=== PATIENT | female | born 1940 | race Caucasian/White ===

== ENCOUNTER 2016-05-12 09:23 | Inpatient (IN) | payer MEDICARE, OTHER ==
--- NOTE | 2016-05-12 09:31 | ED Physician Documentation ---
General Adult - HISTORIAN Historian: patient - HPI Chief Complaint: Nausea,Vomiting,Diarrhea Onset: days ago (3) Timing: still present Further Comments: yes (Patient states that she has not felt well over the last several days. Has been having some nausea with some slight vomiting of small amount of green material. No blood noted. Patient is reparted by shelter to be having some diarrhea, having several stools a day. Patient has been running a low grade fever.) - ROS CONST: fever, sweating, chills CVS/RESP: cough (productive of brown phlegm) GI/: abdominal pain MS/SKIN/LYMPH: none NEURO/PSYCH: headache - PAST HX Past History: asthma (bipolar, DJD, ), hypertension, other (GERDs, Bipolar disease, CKD, s/p CVA, ) Other History: other (Hypothyroidism, migraine headaches) Surgeries/Procedures: hysterectomy (vaginal) Immunizations: UTD Allergies/Adverse Reactions: Allergies Allergy/AdvReac Type Severity Reaction Status Date / Time hydrocortisone Allergy Verified 05/12/16 10:11 [From Cortizone-10] prochlorperazine edisylate Allergy Verified 05/12/16 10:11 [From Compazine] prochlorperazine maleate Allergy Verified 05/12/16 10:11 [From Compazine] sulfamethoxazole Allergy Verified 05/12/16 10:11 [From Bactrim] trimethoprim [From Bactrim] Allergy Verified 05/12/16 10:11 ciprofloxacin [From Cipro] AdvReac Localized Verified 05/12/16 10:11 Redness ciprofloxacin HCl AdvReac Localized Verified 05/12/16 10:11 [From Cipro] Redness Home Medications: Ambulatory Orders Medication Instructions Recorded DULoxetine HCL [Cymbalta] 30 mg PO BID 02/23/15 Fluticasone Propionate 1 spray DESTINY 1T 02/23/15 Lamotrigine [Lamictal] 200 mg PO HS 02/23/15 Lisinopril [Prinivil] 10 mg PO D 02/23/15 Loratadine [Claritin] 10 mg PO D 02/23/15 Omeprazole [Prilosec] 10 mg PO AC60 02/23/15 Sumatriptan Succinate [Imitrex] 50 mg PO PRN PRN 02/23/15 - SOCIAL HX Smoking History: non-smoker Alcohol Use: none Drug Use: none - FAMILY HX Family History: No - VITAL SIGNS Vital Signs: Vital Signs Temp Pulse Resp BP Pulse Ox 142/55 02/23/15 14:45 - REVIEWED ASSESSMENTS Nursing Assessment Reviewed: Yes Vitals Reviewed: Yes General Adult Physical Exam - PHYSICAL EXAM GENERAL APPEARANCE: mild distress NECK: normal inspection, thyroid normal, supple. No: stiff neck RESPIRATORY: no resp distress, chest non-tender, breath sounds normal. No: wheezes, rales, rhonchi CVS: reg rate & rhythm, heart sounds normal, equal pulses, no murmur, no gallop ABDOMEN: soft, decreased BS, distended (mild). No: rebound BACK: normal inspection SKIN: warm/dry, normal color NEURO: CN's nml as tested, motor nml, sensation nml, mood/affect nml. No: oriented X3 (orinetated time 2, person and place) Discharge Clincal Impression: Partial small bowel obstruction Home Medications: Ambulatory Orders DULoxetine HCL [Cymbalta] 30 mg PO BID 02/23/15 Fluticasone Propionate 1 spray DESTINY 1T 02/23/15 Lamotrigine [Lamictal] 200 mg PO HS 02/23/15 Lisinopril [Prinivil] 10 mg PO D 02/23/15 Loratadine [Claritin] 10 mg PO D 02/23/15 Omeprazole [Prilosec] 10 mg PO AC60 02/23/15 Sumatriptan Succinate [Imitrex] 50 mg PO PRN PRN 02/23/15 Condition: Stable Disposition: ADMITTED INPATIENT Decision to Admit: [id number] Date of Decison to Admit: 05/12/16 Decision Time: 16:00
[2016-05-12] MEDS ORDERED: ONDANSETRON HCL/PF 4 MG/ 2ML VIAL IVP ONE ×2 (09:35→12:39)
[2016-05-12] MEDS ORDERED: 0.9 % SODIUM CHLORIDE 1,000 ML IV ONE (09:48)
[2016-05-12 09:54] LABS: EOSINOPHILS % 1.1 % (0.0-6.8); MEAN CORPUSCULAR HEMOGLOBIN 30.4 pg (28.0-34.0); MEAN CORPUSCULAR VOLUME 96.6 fl (80.0-100.0); MONOCYTES % 3.4 % (0.0-11.0); NEUTROPHILS # 14.5 # k/uL (1.4-7.7)
[2016-05-12] MEDS ORDERED: 0.9 % SODIUM CHLORIDE 1,000 ML IV SCH (10:00)
[2016-05-12 10:07] LABS: eGFR (African) 43; eGFR (Non-African) 36
[2016-05-12] MEDS: DEXTROSE 5 %-0.45 % NACL 1,000 ML IV SCH ×2 (10:40→19:48)
--- NOTE | 2016-05-12 14:59 | Diagnostic Imaging Report ---
[facility] [address] [facility] [place], [place]. [address] Report Submission Date: May 12, 2016 1:18:52 PM CDT Patient Study Name: JOSE BECKMAN Date: May 12, 2016 12:10:58 PM CDT Modality Type: CT\SR Gender: F Description: CT ABD & PELVIS W/ CON : 38 Institution: [facility] Physician SERGEI BACA - ER CT abdomen and pelvis without contrast CLINICAL HISTORY: POSSIBLE BOWEL OBSTRUCTION. PT UNABLE TO BRING ARMS ABOVE HEAD. EXAM PERFORMED WITHOUT CONTRAST DUE TO PT CREATININE TOO HIGH (Hx) / POSSIBLE SMALL BOWEL OBSTRUCTION (DICOM Hx) TECHNIQUE: 5 mm contiguous axial images of the abdomen and pelvis non contrast. FINDINGS: Evaluation is limited without IV contrast. The patient's arms also significant limits evaluation. The lung bases are clear. The noncontrast liver is grossly unremarkable. There is cholelithiasis. The noncontrast spleen, adrenal glands pancreas and kidneys are grossly unremarkable. There is a proximal small bowel obstruction measuring 3.6 cm. The distal small bowel loops are decompressed. The transition point is difficult to ascertain but appears to be in the right midabdomen. There is mild perihepatic ascites. There mild pelvic ascites.. There is no pneumoperitoneum or pneumatosis intestinalis. Nonobstructive osseous lesions. IMPRESSION: 1. Proximal small bowel obstruction without pneumoperitoneum or pneumatosis intestinalis. Evaluation for bowel ischemia is limited without IV contrast. T no elbow S1 here is mild pelvic and perihepatic ascites. 2. Cholelithiasis d/w ER at 1315 hrs Electronically signed on May 12, 2016 1:18:52 PM CDT by: Joey NASSAR
--- NOTE | 2016-05-12 15:00 | Diagnostic Imaging Report ---
SERGEI BACA [facility] [address] [facility].[address] [address] Report Submission Date: May 12, 2016 11:28:26 AM CDT Patient Study Name: JOSE BECKMAN Date: May 12, 2016 10:08:15 AM CDT Modality Type: CR Gender: F Description: CHEST,ABDOMEN : 39 Institution: [facility] Physician: SERGEI BACA Abdominal series with chest History: Nausea, vomiting, abdominal pain Findings: A single view the chest reveals clear lungs and normal heart size. Upright and supine abdominal radiographs reveal moderate to marked distention of multiple small bowel loops. Gas is present in the right colon. There is no free air. Lumbar spondylosis is noted. Atherosclerotic calcifications are present. Impression: Small bowel or possibly right colonic obstruction. Recommend computed tomography of the abdomen and pelvis with intravenous contrast. Electronically signed on May 12, 2016 11:28:26 AM CDT by: Ke NASSAR
--- NOTE | 2016-05-12 17:05 | History and Physical Report ---
History of Present Illnes - History of Present Illness Reason for Visit: Nausea and vomitng History of Present Illness: 76yo white female with 3 day history of nausea vomiting or diarrhea. Patient states she has been running a low-grade fever. Patient has had some mild chills. Patient states her emisis is green in nature. Patient denies any hematemesis melena or hematochezia. Patient has had some mild abdominal cramping. Patient states his last bowel movement was yesterday. Nursing staff at the detention states that she's been having formed bowel movements a day. Bowel movements have been loose and diarrhea in nature. Patient subsequently came to the ED for evaluation. In the ED patient was found to have a partial small bowel obstruction in the proximal small bowel. Dr. Brantley was consulted. It was felt it would be rosenthal to give the patient a trial of bowel rest to see if her partial small bowel obstruction which resolved. Patient states the only previous abdominal surgery. She has had a vaginal hysterectomy. Patient was subsequently admitted to the hospital for further care and treatment. We'll put the patient nothing by mouth. NG tube has been placed to low intermittent suction. - Past Medical History Cardiac: HTN Pulmonary: Asthma CAN CLEANER: CVA Gastrointestinal: GERD Heme/Onc: Anemia NOS Psych: Bipolar, Depression Musculoskeletal: Osteoarthritis Renal/: Chronic renal insuff Endocrine: Hypothyroidism - Past Surgical History Past Surgical History: Hysterectomy (vaginal hysterrectomy) - Past Family History Mother Family History: (70s unknown cause) Father Family History: (60s from [place] cause) - Past Social History Smoke: No Occupation: retired, Alcohol: None Drugs: None Lives: Long Term Domestic Violence: Negative - Health Maintenance Health Maintenance: Influenza Vaccine, Pneumococcal Vaccine. denies: Cholesterol, Mammogram, Colonoscopy, DEXA Pneumonia Vaccine: Yes Resuscitation Status: Resusciation Status Resuscitation Status Do Not Resuscitate - Unable to Obtain History Unable to Obtain: No Review of Systems - Review of Systems Constitutional: Fever, Chills. negative: Sweats, Weakness Eyes: negative: vision change ENT: Nose Congestion. negative: Ear Discharge, Nose Discharge, Mouth Pain Respiratory: Cough, Dry, Shortness of Breath (mild). negative: Sputum, Wheezing Cardiovascular: negative: Chest Pain, Palpitations Gastrointestinal: Nausea, Vomiting, Diarrhea. negative: Abdominal Pain, Constipation, Melena, Hematochezia Genitourinary: negative: Dysuria, Frequency, Incontinence Musculoskeletal: negative: Neck Pain, Shoulder Pain Skin: negative: Rash, Lesions Neurological: Weakness, Confusion (at baseline). negative: Change in Speech - Medications/Allergies Allergies/Adverse Reactions: Allergies Allergy/AdvReac Type Severity Reaction Status Date / Time hydrocortisone Allergy Verified 05/12/16 10:11 [From Cortizone-10] prochlorperazine edisylate Allergy Verified 05/12/16 10:11 [From Compazine] prochlorperazine maleate Allergy Verified 05/12/16 10:11 [From Compazine] sulfamethoxazole Allergy Verified 05/12/16 10:11 [From Bactrim] trimethoprim [From Bactrim] Allergy Verified 05/12/16 10:11 ciprofloxacin [From Cipro] AdvReac Localized Verified 05/12/16 10:11 Redness ciprofloxacin HCl AdvReac Localized Verified 05/12/16 10:11 [From Cipro] Redness Current Inpatient Medications: Current Inpatient Medications Donepezil HCl (Aricept) 10 mg PO HS KATHY Duloxetine HCl (Cymbalta) 30 mg PO BID KATHY Enoxaparin Sodium (Lovenox) 30 mg SQ QD KATHY Stop: 05/25/16 17:01 Dextrose/Sodium Chloride (D51/2ns) 1,000 mls @ 125 mls/hr IV Q8H [facility] Last Admin: 05/12/16 10:40 Dose: 125 mls/hr Pantoprazole Sodium 40 mg/ (Sodium Chloride) 50 mls @ 100 mls/hr IV DAILY [facility] Insulin Human Regular (Humulin R) 0 - 6 unit SQ CHEMX3 [facility] PRN Reason: Protocol Lamotrigine (Lamictal) 200 mg PO DAILY [facility] Lisinopril (Prinivil) 10 mg PO DAILY [facility] Memantine (Namenda) 10 mg PO BID [facility] Miscellaneous (Chem Sticks) 1 each CHEMQID [facility] Exam - Exam Vital Signs: Vital Signs (72 hours) 05/12/16 16:30 Pulse Rate [ 80 Right Pulse ox] Respiratory 18 Rate Blood Pressure 131/66 [Left Arm] O2 Sat by Pulse 96 Oximetry General: Alert, Oriented to Person, Oriented to Place, Cooperative. No: Oriented to Time HEENT: Atraumatic, PERRLA, Hearing Grossly Normal. No: Mouth Mucous membr. moist/[place] (dry) Neck: Normal Range of Motion. No: Stridor, Rigidity, Lymphadenopathy Lungs: Clear to auscultation, Normal air movement, Speaks full Sentences. No: Wheezes, Rales, Rhonchi Cardiovascular: Regular rate, Normal S1, Normal S2, No murmurs. No: Gallops, Rubs, Murmur Abdomen: Soft, No hepatospenomegaly, Other (very mild tenderness to all four quadrants), Distended (mild), Decreased Bowel Sounds. No: Rigid, Hepatomegaly, Splenomegaly Integumentary: Normal, [place], Warm, Dry Extremities: No clubbing, No cyanosis, No edema Neurological: Normal speech, Strength Equal Bilat, Normal tone Psych/Mental Status: No: Mental status NL (at baseline), Mood NL, Appropriate Affect, Intact Judgment Assessment/Plan - Assessment/Plan (1) Partial small bowel obstruction Status: Acute Current Visit: Yes Assessment: Will palce NPO, support with IV fluids, will recheck KUB and blood work in the AM (2) Hypernatremia Status: Acute Current Visit: No Assessment: started D51/2NS, will recheck in AM. Patient is NPO (3) Bipolar 2 disorder Status: Chronic Current Visit: Yes Assessment: stable, will continue with home meds (4) Chronic kidney disease stage 3 Status: Chronic Current Visit: No Assessment: Stable, sill monitor (5) Hypothyroidism Status: Acute Current Visit: No Assessment: stable continue on home medications VTE Assessment - RISK FACTOR SCORE VTE RISK FACTOR SCORES: AGE OVER 60 YEARS, ANTICIPATED BED CONFINEMENT OR IMMOBILIZATION > 24 HOURS - RISK VTE MODERATE RISK: SCORE OF 2 (RISK PROXIMAL DVT 2-4%) PROPHYAXIS NEEDED (VTE ordered)
[2016-05-12] MEDS ORDERED: SALINE FLUSH 10 ML DISP.SYRIN IVF ONE ×3 (18:23→20:09)
[2016-05-12] MEDS ORDERED: PANTOPRAZOLE SODIUM INJ. 40 MG VIAL ONE (18:24)
[2016-05-12] MEDS ORDERED: 0.9 % SODIUM CHLORIDE 50 ML IV ONE (18:24)
[2016-05-12] MEDS: INSULIN REGULAR, HUMAN 100 UNIT/ML 3ML VIAL SQ SCH (18:39)
[2016-05-12] MEDS: LAMOTRIGINE 100 MG TABLET PO SCH (18:40)
[2016-05-12] MEDS: ENOXAPARIN SODIUM 30 MG/0.3 ML DISP.SYRIN SQ SCH (18:40)
[2016-05-12] MEDS: PANTOPRAZOLE SODIUM 40 MG in 0.9 % SODIUM CHLORIDE 50 ML IV SCH (18:40)
[2016-05-12] MEDS: DONEPEZIL HCL 5 MG TABLET PO SCH (19:50)
[2016-05-12] MEDS: DULoxetine HCL 30 MG CAPSULE.DR PO SCH (19:51)
[2016-05-12] MEDS: MEMANTINE HCL 10 MG TABLET PO SCH (19:51)
[2016-05-12 20:01] VITALS: BMI 32.4
[2016-05-13] MEDS: DEXTROSE 5 %-0.45 % NACL 1,000 ML IV SCH (04:15)
[2016-05-13] MEDS ORDERED: 0.9 % SODIUM CHLORIDE 50 ML IV ONE (05:23)
[2016-05-13] MEDS ORDERED: PANTOPRAZOLE SODIUM INJ. 40 MG VIAL ONE (05:23)
[2016-05-13 06:38] LABS: BASOPHILS % 0.1 (0.0-1.5); MEAN CORPUSCULAR HEMOGLOBIN 29.6 pg (28.0-34.0); MEAN CORPUSCULAR VOLUME 99.9 fl (80.0-100.0)
[2016-05-13 06:41] LABS: EOSINOPHILS % 1.4 % (0.0-6.8); MONOCYTES % 4.7 % (0.0-11.0); NEUTROPHILS # 8.4 # k/uL (1.4-7.7)
[2016-05-13] MEDS: INSULIN REGULAR, HUMAN 100 UNIT/ML 3ML VIAL SQ SCH ×3 (07:10→17:02)
--- NOTE | 2016-05-13 08:08 | Inpatient Progress Note ---
Subjective - Required Recertification Statement I anticipate X number of days because-include discharge plan: 4 - Review of Systems General: Denies: Chills Pulmonary: Denies: Dyspnea, Cough Cardiovascular: Denies: Chest Pain, Palpitations Gastrointestinal: Abdominal Pain (mild cramping). Denies: Nausea, Vomiting Genitourinary: Denies: Dysuria, Frequency Neurological: Denies: Weakness Objective - Exam Vitals and I&O: Vital Signs Temp 97.8 F 05/13/16 06:00 Pulse 77 05/13/16 06:00 Resp 20 05/13/16 06:00 BP 126/71 05/13/16 06:00 Pulse Ox 98 05/13/16 06:00 Intake & Output 05/12/16 05/12/16 05/13/16 11:59 23:59 11:59 Intake Total 0 Balance 0 Weight 88.451 kg Intake: Oral 0 Other: Voiding Method Bedpan # Voids 1 - Results Results: Laboratory Results WBC 10.10 K/ul (4.00-12.00) 05/13/16 06:25 RBC 4.11 M/ul (3.90-5.20) 05/13/16 06:25 Hgb 12.2 g/dL (12.0-16.0) 05/13/16 06:25 Hct 41.1 % (34.5-46.5) 05/13/16 06:25 MCV 99.9 fl (80.0-100.0) 05/13/16 06:25 MCH 29.6 pg (28.0-34.0) 05/13/16 06:25 MCHC 29.6 g/dL (30.0-36.0) L 05/13/16 06:25 RDW 12.5 % (11.3-14.3) 05/13/16 06:25 Plt Count 219 K/mm3 (130-400) 05/13/16 06:25 Neut % (Auto) 77.3 % (39.0-79.0) 05/13/16 06:25 Lymph % (Auto) 15.3 % (16.0-50.0) L 05/13/16 06:25 [place] % (Auto) 4.7 % (0.0-11.0) 05/13/16 06:25 Eos % (Auto) 1.4 % (0.0-6.8) 05/13/16 06:25 Baso % (Auto) 0.1 (0.0-1.5) 05/13/16 06:25 Neut # 8.4 # k/uL (1.4-7.7) H 05/13/16 06:25 Lymph # 1.7 # k/uL (0.6-4.0) 05/13/16 06:25 [place] # 0.5 # k/uL (0.0-0.9) 05/13/16 06:25 Eos # 0.2 # k/uL (0.0-0.6) 05/13/16 06:25 Baso # 0.0 # k/uL (0.0-0.5) 05/13/16 06:25 Reactive Lymphs % 1.2 % (0.0-5.0) 05/13/16 06:25 Reactive Lymphs # 0.1 # k/uL (0.0-0.8) 05/13/16 06:25 Sodium 147 mmol/L (136-145) H 05/13/16 06:25 Potassium 3.4 mmol/L (3.5-5.0) L 05/13/16 06:25 Chloride 112 mmol/L (98-110) H 05/13/16 06:25 Carbon Dioxide 32 mmol/L (20-32) 05/13/16 06:25 BUN 41 mg/dL (10-26) H 05/13/16 06:25 Creatinine 1.6 mg/dL (0.4-1.5) H 05/13/16 06:25 Estimated Creat Clear 48 05/13/16 06:25 Est GFR ( Amer) 40 (60-) L 05/13/16 06:25 Est GFR (Non-Af Amer) 33 (60-) L 05/13/16 06:25 Glucose 169 mg/dL (70-99) H 05/13/16 06:25 Calcium 8.6 mg/dL (8.5-10.5) 05/13/16 06:25 Total Bilirubin 0.3 mg/dL (0.2-1.2) 05/13/16 06:25 AST 14 U/L (0-41) 05/13/16 06:25 ALT 14 U/L (0-45) 05/13/16 06:25 Alkaline Phosphatase 51 U/L (46-116) 05/13/16 06:25 Total Protein 5.7 g/dL (6.0-8.5) L 05/13/16 06:25 Albumin 3.6 g/dL (3.0-5.5) 05/13/16 06:25 Amylase 82 U/L (20-104) 05/12/16 09:50 Assessment/Plan - Assessment/Plan (1) Partial small bowel obstruction Status: Acute Current Visit: Yes Assessment: WBC count is down to 10,000, no fever or chills noted. (2) Hypernatremia Status: Acute Current Visit: No Assessment: Improved to 147. Will continue with D51/2NS (3) Bipolar 2 disorder Status: Chronic Current Visit: Yes Assessment: stable on home meds (4) Chronic kidney disease stage 3 Status: Chronic Current Visit: No Assessment: BUN improved to 41, creatinine is up slightly to 1.6. Will continue to monitor. (5) Hyperglycemia Status: Acute Current Visit: Yes Assessment: Blood sugar fasting is in the 170's
[2016-05-13] MEDS: DULoxetine HCL 30 MG CAPSULE.DR PO SCH ×2 (09:31→19:45)
[2016-05-13] MEDS: MEMANTINE HCL 10 MG TABLET PO SCH ×2 (09:32→19:47)
[2016-05-13] MEDS: LISINOPRIL 5 MG TABLET PO SCH (09:32)
[2016-05-13] MEDS: LAMOTRIGINE 100 MG TABLET PO SCH (09:32)
[2016-05-13] MEDS: PANTOPRAZOLE SODIUM 40 MG in 0.9 % SODIUM CHLORIDE 50 ML IV SCH (09:56)
[2016-05-13] MEDS ORDERED: POTAS CHLOR 20 IN D5-1/2NS 1,000 ML IV SCH (10:00)
[2016-05-13] MEDS: DEXTROSE IV SCH ×4 (11:51→21:18)
[2016-05-13] MEDS: NACL IV SCH ×4 (11:51→21:18)
[2016-05-13] MEDS: POTASSIUM CHLORIDE IV SCH ×4 (11:51→21:18)
[2016-05-13] MEDS ORDERED: D5 IV SCH (15:00)
[2016-05-13] MEDS ORDERED: [UNRECOGNIZED DRUG - OTHER] IV SCH (15:00)
[2016-05-13] MEDS: ENOXAPARIN SODIUM 30 MG/0.3 ML DISP.SYRIN SQ SCH (17:24)
--- NOTE | 2016-05-13 18:43 | Diagnostic Imaging Report ---
[facility]MED SURG [facility] [address] [facility] [address] [place] [address]. [id number] Report Submission Date: May 13, 2016 5:54:55 PM CDT Patient Study Name: JOSE BECKMAN Date: May 13, 2016 4:36:51 PM CDT Modality Type: CR Gender: F Description: ABDOMEN : 38 Institution: [facility] Physician: [facility] WING/MED SURG KUB upright Clinical history: Abdominal pain obstruction Technique ap supine radiograph of the abdomen Findings: There is air distention of the colon. Small bowel distention is present. There are fluid levels on the upright abdomen no free air is seen. The right hemidiaphragm is elevated. The nasogastric tube is in the stomach Impression: There is tendon large and small bowel. Nasogastric tube in the stomach No evidence of free air Clear lung bases Electronically signed on May 13, 2016 5:54:55 PM CDT by: Freddy NASSAR
[2016-05-13] MEDS: DONEPEZIL HCL 5 MG TABLET PO SCH (19:44)
[2016-05-13] MEDS ORDERED: DEXTROSE 5 %-0.45 % NACL 0 ML IV ONE (19:45)
[2016-05-14] MEDS: POTASSIUM CHLORIDE IV SCH ×6 (05:10→23:32)
[2016-05-14] MEDS: NACL IV SCH ×6 (05:10→23:32)
[2016-05-14] MEDS: DEXTROSE IV SCH ×6 (05:10→23:32)
[2016-05-14] MEDS: INSULIN REGULAR, HUMAN 100 UNIT/ML 3ML VIAL SQ SCH ×3 (07:30→16:31)
[2016-05-14] MEDS: DULoxetine HCL 30 MG CAPSULE.DR PO SCH ×2 (08:15→19:47)
[2016-05-14] MEDS: MEMANTINE HCL 10 MG TABLET PO SCH ×2 (08:16→19:46)
[2016-05-14] MEDS: LAMOTRIGINE 100 MG TABLET PO SCH (08:16)
[2016-05-14] MEDS: LISINOPRIL 5 MG TABLET PO SCH (08:16)
[2016-05-14] MEDS ORDERED: PANTOPRAZOLE SODIUM INJ. 40 MG VIAL ONE (08:46)
[2016-05-14] MEDS ORDERED: 0.9 % SODIUM CHLORIDE 50 ML IV ONE (08:46)
[2016-05-14] MEDS: PANTOPRAZOLE SODIUM 40 MG in 0.9 % SODIUM CHLORIDE 50 ML IV SCH (09:41)
[2016-05-14] MEDS ORDERED: ACETAMINOPHEN 1,000 MG/100 ML INJ IV PRN (09:50)
[2016-05-14 10:17] LABS: BASOPHILS % 0.1 (0.0-1.5); EOSINOPHILS % 3.4 % (0.0-6.8); MEAN CORPUSCULAR HEMOGLOBIN 30.2 pg (28.0-34.0); MEAN CORPUSCULAR VOLUME 100.1 fl (80.0-100.0); MONOCYTES % 3.4 % (0.0-11.0); NEUTROPHILS # 6.8 # k/uL (1.4-7.7)
[2016-05-14 10:29] LABS: eGFR (African) > 60; eGFR (Non-African) > 60
[2016-05-14] MEDS ORDERED: SALINE FLUSH 10 ML DISP.SYRIN IVF ONE ×2 (11:00→16:09)
[2016-05-14] MEDS: ENOXAPARIN SODIUM 30 MG/0.3 ML DISP.SYRIN SQ SCH (16:31)
--- NOTE | 2016-05-14 16:56 | Diagnostic Imaging Report ---
[facility] [address] [facility].[address] [address] Report Submission Date: May 14, 2016 3:25:10 PM CDT Patient Study Name: JOSE BECKMAN Date: May 14, 2016 8:48:58 AM CDT Modality Type: CR Gender: F Description: ABDOMEN : 38 Institution: [facility] Physician: [facility] WING/MED SURG AP view of the abdomen Clinical history: Bowel obstruction NG tube is in the stomach in good position. There is persistent dilatation of the small bowel loops , however significant amount of air is noted in the colon . the findings could be consistent with partial mechanical small bowel obstruction improved since the previous study . Impression: NG tube is in stomach. Persistent dilated small bowel loops , improved since the previous study . Electronically signed on May 14, 2016 3:25:10 PM CDT by: Cecilio NASSAR
[2016-05-14] MEDS: DONEPEZIL HCL 5 MG TABLET PO SCH (19:46)
[2016-05-14] MEDS ORDERED: DEXTROSE 5 %-0.45 % NACL 1,000 ML IV ONE (22:39)
[2016-05-15] MEDS: DEXTROSE IV SCH ×6 (04:28→18:58)
[2016-05-15] MEDS: POTASSIUM CHLORIDE IV SCH ×6 (04:28→18:58)
[2016-05-15] MEDS: NACL IV SCH ×6 (04:28→18:58)
[2016-05-15] MEDS ORDERED: DEXTROSE 5 %-0.45 % NACL 1,000 ML IV ONE (07:21)
[2016-05-15] MEDS: INSULIN REGULAR, HUMAN 100 UNIT/ML 3ML VIAL SQ SCH ×3 (07:28→16:33)
[2016-05-15] MEDS: LAMOTRIGINE 100 MG TABLET PO SCH (08:35)
[2016-05-15] MEDS: LISINOPRIL 5 MG TABLET PO SCH (08:36)
[2016-05-15] MEDS: MEMANTINE HCL 10 MG TABLET PO SCH ×2 (08:36→20:29)
[2016-05-15] MEDS: DULoxetine HCL 30 MG CAPSULE.DR PO SCH ×2 (08:37→20:23)
[2016-05-15 08:52] LABS: BASOPHILS % 0.2 (0.0-1.5); MEAN CORPUSCULAR HEMOGLOBIN 30.5 pg (28.0-34.0); NEUTROPHILS # 5.6 # k/uL (1.4-7.7)
[2016-05-15 09:25] LABS: eGFR (African) > 60; eGFR (Non-African) > 60
[2016-05-15] MEDS: PANTOPRAZOLE SODIUM 40 MG in 0.9 % SODIUM CHLORIDE 50 ML IV SCH (09:33)
--- NOTE | 2016-05-15 14:01 | Inpatient Progress Note ---
Subjective - Required Recertification Statement I anticipate X number of days because-include discharge plan: 3 - Review of Systems Events since last encounter: Patient is comfortable. Denies and abd pain. Has not passed any flatus that she is aware of. No further nausea noted. Other problems remain stable. General: Denies: Chills Pulmonary: Denies: Dyspnea, Cough Cardiovascular: Denies: Chest Pain, Palpitations Gastrointestinal: Denies: Nausea, Vomiting, Abdominal Pain, Diarrhea, Constipation Neurological: Weakness Objective - Exam Vitals and I&O: Vital Signs Temp 98.8 F 05/15/16 10:00 Pulse 69 05/15/16 10:00 Resp 16 05/15/16 10:00 BP 172/73 05/15/16 10:00 Pulse Ox 100 05/15/16 10:00 Intake & Output 05/14/16 05/15/16 05/15/16 23:59 11:59 23:59 Intake Total 0 Balance 0 Weight 79.379 kg Intake: Oral 0 Other: Voiding Method Bedpan Incontinent # Voids 2 2 General: Alert, Oriented to Person, Oriented to Place, Oriented to Time Neck: Supple, No JVD Lungs: Clear to auscultation, Normal air movement, Speaks full Sentences. No: Respiratory Distress, Wheezes, Rales, Rhonchi Cardiovascular: Regular rate, Normal S1, Normal S2, No murmurs Abdomen: Soft, No tenderness, No hepatospenomegaly, No masses, Decreased Bowel Sounds Skin: Normal, [place], Warm, Dry Neurological: Normal speech Psych/Mental Status: Mental status NL (at baseline) - Results Results: Laboratory Results WBC 7.30 K/ul (4.00-12.00) 05/15/16 08:45 RBC 3.80 M/ul (3.90-5.20) L 05/15/16 08:45 Hgb 11.6 g/dL (12.0-16.0) L 05/15/16 08:45 Hct 38.4 % (34.5-46.5) 05/15/16 08:45 MCV 101.0 fl (80.0-100.0) H 05/15/16 08:45 MCH 30.5 pg (28.0-34.0) 05/15/16 08:45 MCHC 30.3 g/dL (30.0-36.0) 05/15/16 08:45 RDW 12.2 % (11.3-14.3) 05/15/16 08:45 Plt Count 173 K/mm3 (130-400) 05/15/16 08:45 Neut % (Auto) 76.2 % (39.0-79.0) 05/15/16 08:45 Lymph % (Auto) 13.5 % (16.0-50.0) L 05/15/16 08:45 [place] % (Auto) 3.0 % (0.0-11.0) 05/15/16 08:45 Eos % (Auto) 6.0 % (0.0-6.8) 05/15/16 08:45 Baso % (Auto) 0.2 (0.0-1.5) 05/15/16 08:45 Neut # 5.6 # k/uL (1.4-7.7) 05/15/16 08:45 Lymph # 1.0 # k/uL (0.6-4.0) 05/15/16 08:45 [place] # 0.2 # k/uL (0.0-0.9) 05/15/16 08:45 Eos # 0.4 # k/uL (0.0-0.6) 05/15/16 08:45 Baso # 0.0 # k/uL (0.0-0.5) 05/15/16 08:45 Reactive Lymphs % 1.0 % (0.0-5.0) 05/15/16 08:45 Reactive Lymphs # 0.1 # k/uL (0.0-0.8) 05/15/16 08:45 Sodium 150 mmol/L (136-145) H 05/15/16 08:45 Potassium 4.0 mmol/L (3.5-5.0) 05/15/16 08:45 Chloride 112 mmol/L (98-110) H 05/15/16 08:45 Carbon Dioxide 31 mmol/L (20-32) 05/15/16 08:45 BUN 10 mg/dL (10-26) 05/15/16 08:45 Creatinine 0.8 mg/dL (0.4-1.5) 05/15/16 08:45 Estimated Creat Clear 86 05/15/16 08:45 Est GFR ( Amer) > 60 (60-) 05/15/16 08:45 Est GFR (Non-Af Amer) > 60 (60-) 05/15/16 08:45 Glucose 138 mg/dL (70-99) H 05/15/16 08:45 Calcium 8.9 mg/dL (8.5-10.5) 05/15/16 08:45 Total Bilirubin 0.3 mg/dL (0.2-1.2) 05/14/16 10:05 AST 44 U/L (0-41) H 05/14/16 10:05 ALT 38 U/L (0-45) 05/14/16 10:05 Alkaline Phosphatase 55 U/L (46-116) 05/14/16 10:05 Total Protein 6.0 g/dL (6.0-8.5) 05/14/16 10:05 Albumin 3.7 g/dL (3.0-5.5) 05/14/16 10:05 Amylase 82 U/L (20-104) 05/12/16 09:50 Assessment/Plan - Assessment/Plan (1) Partial small bowel obstruction Status: Acute Current Visit: Yes (2) Hypernatremia Status: Acute Current Visit: No (3) Bipolar 2 disorder Status: Chronic Current Visit: Yes (4) Chronic kidney disease stage 3 Status: Chronic Current Visit: No (5) Hyperglycemia Status: Acute Current Visit: Yes
--- NOTE | 2016-05-15 14:06 | Inpatient Progress Note ---
Subjective - Required Recertification Statement I anticipate X number of days because-include discharge plan: 3 - Review of Systems Events since last encounter: Patient continues to slowly improve. BS are a little better today. no vomiting. Sodium is slightly improved. Objective - Exam Vitals and I&O: Vital Signs Temp 98.8 F 05/15/16 10:00 Pulse 69 05/15/16 10:00 Resp 16 05/15/16 10:00 BP 172/73 05/15/16 10:00 Pulse Ox 100 05/15/16 10:00 Intake & Output 05/14/16 05/15/16 05/15/16 23:59 11:59 23:59 Intake Total 0 Balance 0 Weight 79.379 kg Intake: Oral 0 Other: Voiding Method Bedpan Incontinent # Voids 2 2 General: Alert, Oriented to Person, Oriented to Place, Cooperative Lungs: Clear to auscultation, Normal air movement, Speaks full Sentences. No: Wheezes, Rales, Rhonchi Cardiovascular: Regular rate, Normal S1, Normal S2, No murmurs, Gallops Abdomen: Soft, No tenderness, Decreased Bowel Sounds Extremities: No clubbing, No cyanosis Skin: Normal, [place], Warm, Dry - Results Results: Laboratory Results WBC 7.30 K/ul (4.00-12.00) 05/15/16 08:45 RBC 3.80 M/ul (3.90-5.20) L 05/15/16 08:45 Hgb 11.6 g/dL (12.0-16.0) L 05/15/16 08:45 Hct 38.4 % (34.5-46.5) 05/15/16 08:45 MCV 101.0 fl (80.0-100.0) H 05/15/16 08:45 MCH 30.5 pg (28.0-34.0) 05/15/16 08:45 MCHC 30.3 g/dL (30.0-36.0) 05/15/16 08:45 RDW 12.2 % (11.3-14.3) 05/15/16 08:45 Plt Count 173 K/mm3 (130-400) 05/15/16 08:45 Neut % (Auto) 76.2 % (39.0-79.0) 05/15/16 08:45 Lymph % (Auto) 13.5 % (16.0-50.0) L 05/15/16 08:45 [place] % (Auto) 3.0 % (0.0-11.0) 05/15/16 08:45 Eos % (Auto) 6.0 % (0.0-6.8) 05/15/16 08:45 Baso % (Auto) 0.2 (0.0-1.5) 05/15/16 08:45 Neut # 5.6 # k/uL (1.4-7.7) 05/15/16 08:45 Lymph # 1.0 # k/uL (0.6-4.0) 05/15/16 08:45 Blanco # 0.2 # k/uL (0.0-0.9) 05/15/16 08:45 Eos # 0.4 # k/uL (0.0-0.6) 05/15/16 08:45 Baso # 0.0 # k/uL (0.0-0.5) 05/15/16 08:45 Reactive Lymphs % 1.0 % (0.0-5.0) 05/15/16 08:45 Reactive Lymphs # 0.1 # k/uL (0.0-0.8) 05/15/16 08:45 Sodium 150 mmol/L (136-145) H 05/15/16 08:45 Potassium 4.0 mmol/L (3.5-5.0) 05/15/16 08:45 Chloride 112 mmol/L (98-110) H 05/15/16 08:45 Carbon Dioxide 31 mmol/L (20-32) 05/15/16 08:45 BUN 10 mg/dL (10-26) 05/15/16 08:45 Creatinine 0.8 mg/dL (0.4-1.5) 05/15/16 08:45 Estimated Creat Clear 86 05/15/16 08:45 Est GFR ( Amer) > 60 (60-) 05/15/16 08:45 Est GFR (Non-Af Amer) > 60 (60-) 05/15/16 08:45 Glucose 138 mg/dL (70-99) H 05/15/16 08:45 Calcium 8.9 mg/dL (8.5-10.5) 05/15/16 08:45 Total Bilirubin 0.3 mg/dL (0.2-1.2) 05/14/16 10:05 AST 44 U/L (0-41) H 05/14/16 10:05 ALT 38 U/L (0-45) 05/14/16 10:05 Alkaline Phosphatase 55 U/L (46-116) 05/14/16 10:05 Total Protein 6.0 g/dL (6.0-8.5) 05/14/16 10:05 Albumin 3.7 g/dL (3.0-5.5) 05/14/16 10:05 Amylase 82 U/L (20-104) 05/12/16 09:50 Assessment/Plan - Assessment/Plan (1) Partial small bowel obstruction Status: Acute Current Visit: Yes Assessment: Gas pattern is slowly improving, seems to be more gas in colon then before. Will continue with present treatment, hopefully will be better tomorrow and can start some oral fluids. (2) Hypernatremia Status: Acute Current Visit: No Assessment: stable (3) Bipolar 2 disorder Status: Chronic Current Visit: Yes Assessment: stable (4) Chronic kidney disease stage 3 Status: Chronic Current Visit: No Assessment: improved, creat 1.0 (5) Hyperglycemia Status: Acute Current Visit: Yes Assessment: has been running in the mid 100 range (6) Positive blood culture Status: Acute Current Visit: Yes Assessment: staph species in one bottle, WBC normal, no fever or chills, suspect contaminate.
[2016-05-15] MEDS: ENOXAPARIN SODIUM 30 MG/0.3 ML DISP.SYRIN SQ SCH ×2 (16:34→16:35)
[2016-05-15] MEDS ORDERED: POTASSIUM CHLORIDE 20 MEQ/10ML VIAL IV SCH (17:00)
[2016-05-15] MEDS ORDERED: ENOXAPARIN SODIUM 30 MG/0.3 ML DISP.SYRIN SQ SCH (18:00)
[2016-05-15] MEDS ORDERED: GLYCERIN 1 EACH SUPP.RECT RC ONE ×2 (19:19→20:21)
--- NOTE | 2016-05-15 20:11 | Diagnostic Imaging Report ---
S[facility]/MED SURG [facility] [address] [facility].[address] [address] Report Submission Date: May 15, 2016 4:27:02 PM CDT Patient Study Name: JOSE BECKMAN Date: May 15, 2016 1:33:13 PM CDT Modality Type: CR Gender: F Description: ABDOMEN : 38 Institution: [facility] Physician: S[facility]/MED SURG Supine abdomen History: Partial small bowel obstruction Findings: Comparison is made to the prior exam obtained yesterday. A nasogastric tube projects over the distal stomach without change. There is moderate to marked distention of multiple small bowel loops, increased since the prior exam. The amount of colonic gas has decreased slightly. Right colonic mural thickening may be present. Impression: 1. Worsening small bowel obstruction. 2. Possible right sided colitis. Electronically signed on May 15, 2016 4:27:02 PM CDT by: Ke NASSAR
[2016-05-15] MEDS: DONEPEZIL HCL 5 MG TABLET PO SCH (20:23)
[2016-05-16] MEDS: POTASSIUM CHLORIDE IV SCH ×6 (02:15→08:22)
[2016-05-16] MEDS: DEXTROSE IV SCH ×6 (02:15→08:22)
[2016-05-16] MEDS: NACL IV SCH ×6 (02:15→08:22)
[2016-05-16 06:31] LABS: BASOPHILS % 0.1 (0.0-1.5); EOSINOPHILS % 6.4 % (0.0-6.8); MEAN CORPUSCULAR HEMOGLOBIN 29.7 pg (28.0-34.0); MEAN CORPUSCULAR VOLUME 98.9 fl (80.0-100.0); MONOCYTES % 3.8 % (0.0-11.0); NEUTROPHILS # 4.9 # k/uL (1.4-7.7)
[2016-05-16 06:50] LABS: eGFR (African) > 60; eGFR (Non-African) > 60
[2016-05-16] MEDS: INSULIN REGULAR, HUMAN 100 UNIT/ML 3ML VIAL SQ SCH ×2 (07:29→11:35)
[2016-05-16] MEDS: LISINOPRIL 5 MG TABLET PO SCH (08:30)
[2016-05-16] MEDS: DULoxetine HCL 30 MG CAPSULE.DR PO SCH (08:30)
[2016-05-16] MEDS: LAMOTRIGINE 100 MG TABLET PO SCH (08:30)
[2016-05-16] MEDS: MEMANTINE HCL 10 MG TABLET PO SCH (08:30)
[2016-05-16] MEDS: PANTOPRAZOLE SODIUM 40 MG in 0.9 % SODIUM CHLORIDE 50 ML IV SCH (08:30)
--- NOTE | 2016-05-16 12:26 | Discharge Summary ---
Discharge Summary - Discharge Sumary History of Present Illness: 76yo white female with 3 day history of nausea vomiting or diarrhea. Patient states she has been running a low-grade fever. Patient has had some mild chills. Patient states her emisis is green in nature. Patient denies any hematemesis melena or hematochezia. Patient has had some mild abdominal cramping. Patient states his last bowel movement was yesterday. Nursing staff at the longterm states that she's been having formed bowel movements a day. Bowel movements have been loose and diarrhea in nature. Patient subsequently came to the ED for evaluation. In the ED patient was found to have a partial small bowel obstruction in the proximal small bowel. Dr. Brantley was consulted. It was felt it would be rosenthal to give the patient a trial of bowel rest to see if her partial small bowel obstruction which resolved. Patient states the only previous abdominal surgery. She has had a vaginal hysterectomy. Patient was subsequently admitted to the hospital for further care and treatment. We'll put the patient nothing by mouth. NG tube has been placed to low intermittent suction. Condition at Discharge: Stable Home Medications: Ambulatory Orders Medication Instructions Recorded DULoxetine HCL [Cymbalta] 30 mg PO BID 02/23/15 Fluticasone Propionate 1 spray DESTINY 1T 02/23/15 Lamotrigine [Lamictal] 200 mg PO HS 02/23/15 Lisinopril [Prinivil] 10 mg PO D 02/23/15 Omeprazole [Prilosec] 10 mg PO AC60 02/23/15 Sumatriptan Succinate [Imitrex] 50 mg PO PRN PRN 02/23/15 Consultations this Visit: None Procedures this Visit: Other (NG tube) Allergies/Adverse Reactions: Allergies Allergy/AdvReac Type Severity Reaction Status Date / Time hydrocortisone Allergy Verified 05/12/16 10:11 [From Cortizone-10] prochlorperazine edisylate Allergy Verified 05/12/16 10:11 [From Compazine] prochlorperazine maleate Allergy Verified 05/12/16 10:11 [From Compazine] sulfamethoxazole Allergy Verified 05/12/16 10:11 [From Bactrim] trimethoprim [From Bactrim] Allergy Verified 05/12/16 10:11 ciprofloxacin [From Cipro] AdvReac Localized Verified 05/12/16 10:11 Redness ciprofloxacin HCl AdvReac Localized Verified 05/12/16 10:11 [From Cipro] Redness Patient Problems: Current Active Problems Problem Status Onset Hyperglycemia Acute Partial small bowel obstruction Acute Positive blood culture Acute Bipolar 2 disorder Chronic Discharge Summary: Patient was admitted from longterm with symptoms of ilues vs partial small bowel obstruction. Patient was placed NPO with a NG tube to low intermittent suction. Patient was followed with serial KUBs. Initially it was felt that there was air moving into the colon. Over the last two days little to no improvement was noted. Patient continued to have hypoactive BS. Was nauseated at times but no vomiting noted. Patient did not have any spontaneous flatus or BM. Patient was given a glycerine suppository with a small BM in results. Gastric tube was draining about 150-200ml per day. Patient has some hypernatremia on admission and was supported with D51/2NS. Hypernatremia has resolved. Patient was also hypokalemic and KCl was added to IV fluids. Patient did have some mild hyperglycemia, blood sugars remained 100- 200 range. Bipolar remained stable. BUN improved from 44 to <5, creatinine from 1.5 to 0.8. Due to the the fact that patients bowel obstruction did not appear to be resolving and need for further nutritional support, it was felt patient would best be transferred to the services of a surgeon. - Final Diagnosis (1) Partial small bowel obstruction Problems: minimal improvement, no BM or flatus (2) Hypernatremia Problems: improved and resolved (3) Bipolar 2 disorder Problems: stabl (4) Chronic kidney disease stage 3 Problems: improved (5) Hyperglycemia Problems: stable
[2016-05-16 12:59] VITALS: BP 110/55
--- NOTE | 2016-05-16 20:02 | Diagnostic Imaging Report ---
S[facility]ING/MED SURG [facility] [address] [facility].[address] [address] Report Submission Date: May 16, 2016 8:16:02 AM CDT Patient Study Name: JOSE BECKMAN Date: May 16, 2016 7:19:15 AM CDT Modality Type: CR Gender: F Description: ABDOMEN : 38 Institution: [facility] Physician: S[facility]ING/MED SURG 2 views of the abdomen History: KUB, FOLLOW UP SMALL BOWEL OBSTRUCTION Findings: Comparison: Prior KUB May [id number] Small bowel loops slightly less distended than the prior study Demineralized bones with extensive lumbar spine degenerative changes Elevated right hemidiaphragm Impression: Slightly decreased small bowel distention when compared to the prior study, persistent partial small bowel obstruction No significant rectal gas. Electronically signed on May 16, 2016 8:16:02 AM CDT by: Betty NASSAR
--- NOTE | 2016-05-16 20:05 | Diagnostic Imaging Report ---
S[facility]TH [facility]ING/MED SURG [facility] [address] [facility].[address] [address] Report Submission Date: May 16, 2016 12:26:30 PM CDT Patient Study Name: JOSE BECKMAN Date: May 16, 2016 11:56:17 AM CDT Modality Type: CR Gender: F Description: ABDOMEN : 38 Institution: [facility] Physician: [facility]/MED SURG HISTORY: 76-year-old female with NG tube placement COMPARISON: Radiographs from earlier same day. TECHNIQUE: AP views of the abdomen were performed. FINDINGS: There has been interval placement of an NG tube, with its tip in the gastric body. Multiple loops of dilated small bowel are re-identified. Gas is present in the colon, including gas distended transverse colon. No abnormal calcifications are identified overlying the urinary tract. IMPRESSION: Interval placement of NG tube in good position. Stable loops of dilated small bowel with gas present in the colon, suggestive of ileus versus partial bowel obstruction. Electronically signed on May 16, 2016 12:26:30 PM CDT by: Joel NASSAR
== END 2016-05-16 12:55 | disposition short-term general hospital (02) | DRG 389 ==
LOC: ED 09:23 → SOUTH 15:51
PROVIDERS: ADMIT Family Medicine; ATTEND Family Medicine
DX: K56.69 Other intestinal obstruction (principal); E87.0 Hyperosmolality and hypernatremia; F31.81 Bipolar II disorder; N18.3 Chronic kidney disease, stage 3 (moderate); R73.9 Hyperglycemia, unspecified
CPT/HCPCS: 36415; 74000; 74022; 74176; 80048; 80053; 82150; 85025; 87040; 87186; J1650; J1815; J2405; J3480; J7030; J7070; 99223; 99232; 99238; 99283; S1016; S5010

== ENCOUNTER 2016-08-29 12:56 | Observation (INO) | payer MEDICARE, OTHER ==
[2016-08-29] MEDS ORDERED: NALOXONE HCL 0.4 MG/ML AMP ONE (13:08)
[2016-08-29] MEDS ORDERED: ATROPINE SULFATE 0.1 MG/ML DISP.SYRIN ONE (13:12)
[2016-08-29] MEDS ORDERED: ATROPINE SULFATE 0.1 MG/ML DISP.SYRIN IVP ONE ×2 (13:42→13:44)
[2016-08-29 13:59] LABS: BASOPHILS % 0.3 (0.0-1.5); EOSINOPHILS % 1.7 % (0.0-6.8); MEAN CORPUSCULAR HEMOGLOBIN 32.2 pg (28.0-34.0); MEAN CORPUSCULAR VOLUME 100.2 fl (80.0-100.0); MONOCYTES % 2.9 % (0.0-11.0); NEUTROPHILS # 10.9 # k/uL (1.4-7.7)
[2016-08-29 17:05] VITALS: BMI 34.9
--- NOTE | 2016-08-29 17:15 | History and Physical Report ---
History of Present Illnes - History of Present Illness Reason for Visit: bradycardia History of Present Illness: 76-year-old white female who was found by the nursing staff at [facility] unresponsive. Patient is a DNR. Patient was subsequently brought to the emergency room. The EMT could not get an IV established therefore an interest this was placed. Patient was noted to be markedly bradycardia with a pulse in the 40s. A blood pressure is not able to be obtained prior to admission to the ED. Perfusion was poor enough that pulse ox could not be obtained. On arrival in the ED patient's pulse was 40 respiratory rate but shallow at eight blood pressure is not obtainable. It appeared that the eroticism the longer foxing. On IV access was established and patient was given after pain 1 mg times two doses. Patient only had transitory improvement or bradycardia opportunities 50. The flat this for less than a minute. It did not seem to help with the blood pressure. Patient was unresponsive it except to the pain. Glascow coma scale was six. Talk to the patient previously about her current status. Patient was to be a DNR. Patient did express to me in the past that she did not want to have any extraordinary means done in order to keep her alive. According to the nursing staff patient appeared to be normal earlier today. EKG was obtained the [employer] sinus bradycardia. [place] withdrawn showed some hyerkalemia, otherwise labs appeared enclosed baseline. I discussed the situation with the patient guardian and son. It was elected to replace the patient on comfort care. - Past Medical History Cardiac: HTN Pulmonary: Asthma MOLD CHANGER: CVA Gastrointestinal: GERD Heme/Onc: Anemia NOS Psych: Bipolar, Depression Musculoskeletal: Osteoarthritis Renal/: Chronic renal insuff Endocrine: Hypothyroidism - Past Surgical History Past Surgical History: Hysterectomy (vaginal hysterrectomy) - Past Social History Smoke: No Occupation: retired, Alcohol: None Drugs: None Lives: [facility] Domestic Violence: Negative - Health Maintenance Health Maintenance: Influenza Vaccine, Pneumococcal Vaccine. denies: Cholesterol, Mammogram, Colonoscopy, DEXA Pneumonia Vaccine: Yes Resuscitation Status: Resusciation Status Resuscitation Status Do Not Resuscitate - Unable to Obtain History Unable to Obtain: Yes Review of Systems - Review of Systems Constitutional: negative: Fever, Chills Eyes: negative: pain, vision change ENT: negative: Ear Pain, Ear Discharge Respiratory: negative: Cough, Dry, Shortness of Breath, SOB with Excertion Cardiovascular: negative: Chest Pain, Palpitations Gastrointestinal: negative: Nausea, Vomiting, Abdominal Pain Genitourinary: negative: Dysuria, Frequency Musculoskeletal: Back Pain Skin: negative: Rash Neurological: Weakness, Numbness, Change in Speech, Confusion - Medications/Allergies Allergies/Adverse Reactions: Allergies Allergy/AdvReac Type Severity Reaction Status Date / Time hydrocortisone Allergy Verified 08/29/16 14:00 [From Cortizone-10] prochlorperazine edisylate Allergy Verified 08/29/16 14:00 [From Compazine] prochlorperazine maleate Allergy Verified 08/29/16 14:00 [From Compazine] sulfamethoxazole Allergy Verified 08/29/16 14:00 [From Bactrim] trimethoprim [From Bactrim] Allergy Verified 08/29/16 14:00 ciprofloxacin [From Cipro] AdvReac Localized Verified 08/29/16 14:00 Redness ciprofloxacin HCl AdvReac Localized Verified 08/29/16 14:00 [From Cipro] Redness Current Inpatient Medications: Current Inpatient Medications Enoxaparin Sodium (Lovenox) 30 mg SQ QD KATHY Stop: 09/11/16 18:01 Exam - Exam Vital Signs: Vital Signs (72 hours) 08/29/16 08/29/16 16:30 16:52 Temperature 97.7 F Pulse Rate [ 37 L 30 L Pulse ox] Respiratory 24 9 L Rate Blood Pressure 29/0 89/33 [Left Arm] O2 Sat by Pulse 100 90 L Oximetry General: No acute distress. No: Alert, Oriented to Person, Oriented to Place, Oriented to Time HEENT: Atraumatic, PERRLA (pupils were small), Nose Mucous membr. moist/[place] Neck: No: Stridor, Lymphadenopathy Carotids: WNL Thyroid: WNL Lungs: Clear to auscultation, Normal air movement. No: Speaks full Sentences, Wheezes, Rales, Rhonchi Cardiovascular: Regular rate, Bradycardia Murmur: Systolic Murmur Abdomen: Normal bowel sounds, Soft, No tenderness, No hepatospenomegaly, No masses Integumentary: Normal, Dry, Cyanotic Extremities: No clubbing. No: No cyanosis (mil cyanosis) Neurological: Reflexes 2+. No: Normal tone Psych/Mental Status: No: Mental status NL, Mood NL, Appropriate Affect, Intact Judgment Assessment/Plan - Assessment/Plan (1) Unresponsive Status: Acute Assessment: unknown etiology, possible CVA. (2) Sinus bradycardia Status: Acute Assessment: etiology unkown, no evidence of NE at this time (3) Bipolar 2 disorder Status: Chronic (4) Chronic kidney disease stage 3 Status: Chronic Assessment: stable VTE Assessment - RISK FACTOR SCORE VTE RISK FACTOR SCORES: AGE OVER 60 YEARS, ANTICIPATED BED CONFINEMENT OR IMMOBILIZATION > 24 HOURS - RISK VTE MODERATE RISK: SCORE OF 2 (RISK PROXIMAL DVT 2-4%) PROPHYAXIS NEEDED
[2016-08-29] MEDS: ENOXAPARIN SODIUM 30 MG/0.3 ML DISP.SYRIN SQ SCH (18:18)
--- NOTE | 2016-08-29 20:40 | ED Physician Documentation ---
Altered Mental Status - HISTORIAN Historian: other (nursing staff) - HPI Stated Complaint: unresponsive Chief Complaint: Altered Mental Status Onset: hours Last known Well Date: 08/29/16 Last Known Well Time: 12:00 Last known Well Code/Unknown Code: Known Character of Altered Mental Status: unresponsive Context: senior living resident Cognition is Usually: alert but confused Gait is Usually: unable to walk (in wheelchair) Associated Symptoms: denies: fever, chills - ROS EYES/ENT: none CVS/RESP: none GI/: none - PAST HX Past History: bipolar Other History: asthma, COPD Allergies/Adverse Reactions: Allergies Allergy/AdvReac Type Severity Reaction Status Date / Time hydrocortisone Allergy Verified 08/29/16 14:00 [From Cortizone-10] prochlorperazine edisylate Allergy Verified 08/29/16 14:00 [From Compazine] prochlorperazine maleate Allergy Verified 08/29/16 14:00 [From Compazine] sulfamethoxazole Allergy Verified 08/29/16 14:00 [From Bactrim] trimethoprim [From Bactrim] Allergy Verified 08/29/16 14:00 ciprofloxacin [From Cipro] AdvReac Localized Verified 08/29/16 14:00 Redness ciprofloxacin HCl AdvReac Localized Verified 08/29/16 14:00 [From Cipro] Redness Home Medications: Ambulatory Orders Medication Instructions Recorded DULoxetine HCL [Cymbalta] 30 mg PO BID 02/23/15 Fluticasone Propionate 1 spray DESTINY 1T 02/23/15 Lamotrigine [Lamictal] 200 mg PO HS 02/23/15 Lisinopril [Prinivil] 10 mg PO D 02/23/15 Omeprazole [Prilosec] 10 mg PO AC60 02/23/15 Sumatriptan Succinate [Imitrex] 50 mg PO PRN PRN 02/23/15 - SOCIAL HX Smoking History: non-smoker Alcohol Use: none Drug Use: none - FAMILY HX Family History: no significant history - VITAL SIGNS Vital Signs: Vital Signs Temp Pulse Resp BP Pulse Ox 97.6 F 61 12 112/37 94 08/29/16 18:00 08/29/16 18:00 08/29/16 18:00 08/29/16 18:00 08/29/16 18:00 - REVIEWED ASSESSMENTS Nursing Assessment Reviewed: Yes Vitals Reviewed: Yes Progress - Progress Progress: Cardiac studies are normal. Sinus dharmesh. Suspect sinus arrhythmia or possible CVA, after talking to son and guardian decided no inverntion per her earlier request ED Results Lab/Radiology - Lab Results Lab Results: Lab Results 08/29/16 08/29/16 08/29/16 13:45 13:45 13:45 WBC 12.50 K/ul H K/ul (4.00-12.00) RBC 3.25 M/ul L M/ul (3.90-5.20) Hgb 10.5 g/dL L g/dL (12.0-16.0) Hct 32.6 % L % (34.5-46.5) MCV 100.2 fl H fl (80.0-100.0) MCH 32.2 pg pg (28.0-34.0) MCHC 32.1 g/dL g/dL (30.0-36.0) RDW 13.5 % % (11.3-14.3) Plt Count 255 K/mm3 K/mm3 (130-400) Neut % (Auto) 87.1 % H % (39.0-79.0) Lymph % (Auto) 7.6 % L % (16.0-50.0) [place] % (Auto) 2.9 % % (0.0-11.0) Eos % (Auto) 1.7 % % (0.0-6.8) Baso % (Auto) 0.3 (0.0-1.5) Neut # (Auto) 10.9 # k/uL H # k/uL (1.4-7.7) Lymph # (Auto) 1.0 # k/uL # k/uL (0.6-4.0) [place] # (Auto) 0.4 # k/uL # k/uL (0.0-0.9) Eos # (Auto) 0.2 # k/uL # k/uL (0.0-0.6) Baso # (Auto) 0.0 # k/uL # k/uL (0.0-0.5) Reactive Lymphs % 0.4 % % (0.0-5.0) Reactive Lymphs # 0.1 # k/uL # k/uL (0.0-0.8) Sodium 137 mmol/L mmol/L (136-145) Potassium 5.6 mmol/L H mmol/L (3.5-5.0) Chloride 111 mmol/L H mmol/L (98-110) Carbon Dioxide 26 mmol/L mmol/L (20-32) BUN 30 mg/dL H mg/dL (10-26) Creatinine 1.7 mg/dL H mg/dL (0.4-1.5) Estimated Creat Clear 45 Est GFR ( Amer) 37 L (60 - ) Est GFR (Non-Af Amer) 31 L (60 - ) Glucose 106 mg/dL H mg/dL (70-99) Calcium 9.3 mg/dL mg/dL (8.5-10.5) Total Bilirubin 0.1 mg/dL L mg/dL (0.2-1.2) AST 16 U/L U/L (0-41) ALT 8 U/L U/L (0-45) Alkaline Phosphatase 68 U/L U/L (46-116) Troponin I < 0.03 ng/mL L ng/mL (0.03-0.06) Total Protein 6.6 g/dL g/dL (6.0-8.5) Albumin 4.0 g/dL g/dL (3.0-5.5) - Orders Orders: ED Orders Category Date Time Status Place IV Lock 1T Care 08/29/16 13:43 Completed CBC/PLATELET/DIFF Routine Lab 08/29/16 13:45 Completed CMP Routine Lab 08/29/16 13:45 Completed TROPONIN I (cTnI) Routine Lab 08/29/16 13:45 Completed Atropine Sulfate [Atropen] Med 08/29/16 13:12 Discontinued 1 mg .ROUTE .STK-MED ONE Atropine Sulfate [Atropen] Med 08/29/16 13:42 Discontinued 1 mg IVP NOW ONE Atropine Sulfate [Atropen] Med 08/29/16 13:44 Discontinued 1 mg IVP NOW ONE Naloxone HCl [Narcan] Med 08/29/16 13:08 Discontinued 0.4 mg .ROUTE .STK-MED ONE Oxygen Daily Oxygen 08/29/16 13:45 Ordered EKG WITH COMPARISON Routine Ther 08/29/16 13:42 Stop Req Altered Mental Status Physical - Physical Exam General Appearance: no acute distress, other (responsive to pain stimuli) Neuro/Psych: none no response, withdraws nml as tested Peripheral Exam: other (not able to determine) HEENT: EOM's intact Neck: normal inspection Respiratory: no resp distress, chest non-tender CVS: heart sounds normal, bradycardia (marked). No: equal pulses (nonpalpable) Abdomen: non-tender Skin: warm/dry, normal color Extremities: non-tender, normal range of motion Discharge Clincal Impression: Altered mental status Home Medications: Ambulatory Orders DULoxetine HCL [Cymbalta] 30 mg PO BID 02/23/15 Fluticasone Propionate 1 spray DESTINY 1T 02/23/15 Lamotrigine [Lamictal] 200 mg PO HS 02/23/15 Lisinopril [Prinivil] 10 mg PO D 02/23/15 Omeprazole [Prilosec] 10 mg PO AC60 02/23/15 Sumatriptan Succinate [Imitrex] 50 mg PO PRN PRN 02/23/15 Condition: Poor Disposition: 09 ADMITTED INPATIENT Decision to Admit: [id number] Date of Decison to Admit: 08/29/16 Decision Time: 16:45
[2016-08-30] MEDS ORDERED: 0.9 % SODIUM CHLORIDE 1,000 ML IV ONE (08:06)
[2016-08-30] MEDS ORDERED: SALINE FLUSH 10 ML DISP.SYRIN IVF ONE (08:11)
[2016-08-30] MEDS: 0.9 % SODIUM CHLORIDE 1,000 ML IV SCH ×2 (08:30→19:33)
[2016-08-30 08:32] LABS: BASOPHILS % 0.4 (0.0-1.5); EOSINOPHILS % 3.2 % (0.0-6.8); MEAN CORPUSCULAR HEMOGLOBIN 30.2 pg (28.0-34.0); MEAN CORPUSCULAR VOLUME 99.9 fl (80.0-100.0); MONOCYTES % 3.6 % (0.0-11.0); NEUTROPHILS # 7.9 # k/uL (1.4-7.7)
[2016-08-30] MEDS: LISINOPRIL 5 MG TABLET PO SCH (14:30)
[2016-08-30] MEDS: ENOXAPARIN SODIUM 30 MG/0.3 ML DISP.SYRIN SQ SCH (18:49)
[2016-08-31] MEDS ORDERED: LISINOPRIL 20 MG TABLET ONE (05:00)
--- NOTE | 2016-08-31 08:33 | Inpatient Progress Note ---
Subjective - Required Recertification Statement I anticipate X number of days because-include discharge plan: 1 - Review of Systems Events since last encounter: Patient has made a remarkable recovery and seems to be back to baseline. Is awake and talking. Orientated time person and place, knows the season. General: Denies: Chills HEENT: Denies: Head Aches, Visual Changes Cardiovascular: Denies: Chest Pain, Palpitations Gastrointestinal: Denies: Nausea, Vomiting, Abdominal Pain, Constipation Genitourinary: Denies: Dysuria, Frequency Objective - Exam Vitals and I&O: Vital Signs Temp 98.0 F 08/31/16 06:00 Pulse 71 08/31/16 06:00 Resp 18 08/31/16 06:00 BP 144/75 08/31/16 06:00 Pulse Ox 99 08/31/16 06:00 Intake & Output 08/30/16 08/30/16 08/31/16 11:59 23:59 11:59 Intake Total 240 3680 Balance 240 3680 Intake: IV 2400 Left Hand 2400 Oral 240 1280 Other: Voiding Method Incontinent Incontinent # Voids 1 2 General: Alert, Oriented to Person, Oriented to Place, Cooperative, No acute distress HEENT: Atraumatic, PERRLA, Mouth Mucous membr. moist/[place] Neck: Supple, No JVD Lungs: Clear to auscultation, Normal air movement, Speaks full Sentences. No: Wheezes, Rales, Rhonchi Cardiovascular: Regular rate, Normal S1, Normal S2, No murmurs. No: Gallops Abdomen: Normal bowel sounds, Soft, No tenderness Skin: Normal, [place], Warm Neurological: Normal speech, Strength Equal Bilat, Normal tone, Sensation intact , Cranial nerves 3-12 NL, Reflexes 2+ Psych/Mental Status: Mental status NL (at baseline), Mood NL - Results Results: Laboratory Results WBC 10.10 K/ul (4.00-12.00) 08/30/16 08:00 RBC 3.42 M/ul (3.90-5.20) L 08/30/16 08:00 Hgb 10.3 g/dL (12.0-16.0) L 08/30/16 08:00 Hct 34.1 % (34.5-46.5) L 08/30/16 08:00 MCV 99.9 fl (80.0-100.0) 08/30/16 08:00 MCH 30.2 pg (28.0-34.0) 08/30/16 08:00 MCHC 30.3 g/dL (30.0-36.0) 08/30/16 08:00 RDW 13.6 % (11.3-14.3) 08/30/16 08:00 Plt Count 228 K/mm3 (130-400) 08/30/16 08:00 Neut % (Auto) 77.7 % (39.0-79.0) 08/30/16 08:00 Lymph % (Auto) 14.2 % (16.0-50.0) L 08/30/16 08:00 [place] % (Auto) 3.6 % (0.0-11.0) 08/30/16 08:00 Eos % (Auto) 3.2 % (0.0-6.8) 08/30/16 08:00 Baso % (Auto) 0.4 (0.0-1.5) 08/30/16 08:00 Neut # (Auto) 7.9 # k/uL (1.4-7.7) H 08/30/16 08:00 Lymph # (Auto) 1.4 # k/uL (0.6-4.0) 08/30/16 08:00 [place] # (Auto) 0.4 # k/uL (0.0-0.9) 08/30/16 08:00 Eos # (Auto) 0.3 # k/uL (0.0-0.6) 08/30/16 08:00 Baso # (Auto) 0.0 # k/uL (0.0-0.5) 08/30/16 08:00 Reactive Lymphs % 0.9 % (0.0-5.0) 08/30/16 08:00 Reactive Lymphs # 0.1 # k/uL (0.0-0.8) 08/30/16 08:00 Sodium 138 mmol/L (136-145) 08/30/16 08:00 Potassium 5.6 mmol/L (3.5-5.0) H 08/30/16 08:00 Chloride 113 mmol/L (98-110) H 08/30/16 08:00 Carbon Dioxide 23 mmol/L (20-32) 08/30/16 08:00 BUN 35 mg/dL (10-26) H 08/30/16 08:00 Creatinine 1.6 mg/dL (0.4-1.5) H 08/30/16 08:00 Estimated Creat Clear 48 08/30/16 08:00 Est GFR ( Amer) 40 (60-) L 08/30/16 08:00 Est GFR (Non-Af Amer) 33 (60-) L 08/30/16 08:00 Glucose 101 mg/dL (70-99) H 08/30/16 08:00 Calcium 9.7 mg/dL (8.5-10.5) 08/30/16 08:00 Total Bilirubin 0.2 mg/dL (0.2-1.2) 08/30/16 08:00 AST 16 U/L (0-41) 08/30/16 08:00 ALT 13 U/L (0-45) 08/30/16 08:00 Alkaline Phosphatase 77 U/L (46-116) 08/30/16 08:00 Troponin I < 0.03 ng/mL (0.03-0.06) L 08/30/16 08:00 Total Protein 7.1 g/dL (6.0-8.5) 08/30/16 08:00 Albumin 4.1 g/dL (3.0-5.5) 08/30/16 08:00 Assessment/Plan - Assessment/Plan (1) Unresponsive Status: Acute Current Visit: Yes Assessment: mentation is back to normal. (2) Sinus bradycardia Status: Acute Current Visit: Yes Assessment: improved, EKG shows NSR (3) Bipolar 2 disorder Status: Chronic Current Visit: No Assessment: stable (4) Chronic kidney disease stage 3 Status: Chronic Current Visit: No Assessment: stable
[2016-08-31] MEDS: LISINOPRIL 5 MG TABLET PO SCH (08:35)
[2016-08-31 08:56] VITALS: BP 159/60
[2016-08-31 10:17] LABS: eGFR (African) > 60; eGFR (Non-African) > 60
--- NOTE | 2016-09-29 17:05 | Discharge Summary ---
Discharge Summary - Discharge Sumary History of Present Illness: 76-year-old white female who was found by the nursing staff at [facility] unresponsive. Patient is a DNR. Patient was subsequently brought to the emergency room. The EMT could not get an IV established therefore an interest this was placed. Patient was noted to be markedly bradycardia with a pulse in the 40s. A blood pressure is not able to be obtained prior to admission to the ED. Perfusion was poor enough that pulse ox could not be obtained. On arrival in the ED patient's pulse was 40 respiratory rate but shallow at eight blood pressure is not obtainable. It appeared that the eroticism the longer foxing. On IV access was established and patient was given after pain 1 mg times two doses. Patient only had transitory improvement or bradycardia opportunities 50. The flat this for less than a minute. It did not seem to help with the blood pressure. Patient was unresponsive it except to the pain. Glascow coma scale was six. Talk to the patient previously about her current status. Patient was to be a DNR. Patient did express to me in the past that she did not want to have any extraordinary means done in order to keep her alive. According to the nursing staff patient appeared to be normal earlier today. EKG was obtained the [facility] sinus bradycardia. [place] withdrawn showed some hyerkalemia, otherwise labs appeared enclosed baseline. I discussed the situation with the patient guardian and son. It was elected to replace the patient on comfort care. Condition at Discharge: Stable Home Medications: Ambulatory Orders Medication Instructions Recorded DULoxetine HCL [Cymbalta] 30 mg PO BID 02/23/15 Fluticasone Propionate 1 spray DESTINY 1T 02/23/15 Lamotrigine [Lamictal] 200 mg PO HS 02/23/15 Sumatriptan Succinate [Imitrex] 50 mg PO PRN PRN 02/23/15 Tramadol HCl [Ultram] 50 mg PO Q6 #60 tablet 08/31/16 Consultations this Visit: None Procedures this Visit: None Allergies/Adverse Reactions: Allergies Allergy/AdvReac Type Severity Reaction Status Date / Time hydrocortisone Allergy Verified 08/29/16 14:00 [From Cortizone-10] prochlorperazine edisylate Allergy Verified 08/29/16 14:00 [From Compazine] prochlorperazine maleate Allergy Verified 08/29/16 14:00 [From Compazine] sulfamethoxazole Allergy Verified 08/29/16 14:00 [From Bactrim] trimethoprim [From Bactrim] Allergy Verified 08/29/16 14:00 ciprofloxacin [From Cipro] AdvReac Localized Verified 08/29/16 14:00 Redness ciprofloxacin HCl AdvReac Localized Verified 08/29/16 14:00 [From Cipro] Redness Discharge Summary: After discussing with the patient guardian her situation was decided to get the patient supportive relative care. However after a period of time patient started to become more aroused and within 24 hours patient appeared to be close to baseline mental status. Specific etiology to her unresponsive is not known. Some question whether the patient may have had some difficulties with medications that she was given. Once patient became more responsive she did not verbalize any complaints. Patient was subsequently discharged back to [facility] and stable condition. - Final Diagnosis (1) Unresponsive Problems: resolved (2) Sinus bradycardia Problems: improved (3) Bipolar 2 disorder Problems: stable (4) Chronic kidney disease stage 3 Problems: stable
== END 2016-08-31 13:50 | disposition home or self-care (01) ==
LOC: ED 12:56 → SOUTH 16:21
PROVIDERS: ADMIT Family Medicine; ATTEND Family Medicine
DX: R40.4 Transient alteration of awareness (principal); R00.1 Bradycardia, unspecified; F31.9 Bipolar disorder, unspecified; N18.3 Chronic kidney disease, stage 3 (moderate)
CPT/HCPCS: 36415; 80048; 80053; 84484; 85025; 93005; G0378; J0461; J1650; J2310; J7030; 96361; 96374; 96375; 96376; 99284; S1016

== ENCOUNTER 2017-04-25 07:33 | Inpatient (IN) | payer MEDICARE, OTHER ==
--- NOTE | 2017-04-25 07:37 | ED Physician Documentation ---
General Adult - HISTORIAN Historian: patient - HPI Stated Complaint: nausea vomiting and diarrhea Chief Complaint: Nausea,Vomiting,Diarrhea Onset: hours (5) Timing: still present Severity: mild Further Comments: yes (alf pt who was transfered to ER via ambulance. Per ambulance she had a fever of 102 in alf with vomiting and diarrhea. she was brought to ER - heavily soiled (dry stool over entire body) . She is non verbal.) Last known Well Code/Unknown Code: Unknown - ROS CONST: fever. denies: recent illness CVS/RESP: cough GI/: vomiting, diarrhea MS/SKIN/LYMPH: denies: rash - PAST HX Past History: hypertension, other (bipolar, asthma, GERD, [place], ) Surgeries/Procedures: other (unknown ) Immunizations: UTD Allergies/Adverse Reactions: Allergies Allergy/AdvReac Type Severity Reaction Status Date / Time hydrocortisone Allergy Verified 04/25/17 08:17 [From Cortizone-10] prochlorperazine edisylate Allergy Verified 04/25/17 08:17 [From Compazine] prochlorperazine maleate Allergy Verified 04/25/17 08:17 [From Compazine] sulfamethoxazole Allergy Verified 04/25/17 08:17 [From Bactrim] trimethoprim [From Bactrim] Allergy Verified 04/25/17 08:17 ciprofloxacin [From Cipro] AdvReac Localized Verified 04/25/17 08:17 Redness ciprofloxacin HCl AdvReac Localized Verified 04/25/17 08:17 [From Cipro] Redness Home Medications: Ambulatory Orders Medication Instructions Recorded DULoxetine HCL [Cymbalta] 30 mg PO BID 02/23/15 Fluticasone Propionate 1 spray DESTINY 1T 02/23/15 Sumatriptan Succinate [Imitrex] 50 mg PO Q2H PRN 02/23/15 Acetaminophen [Tylenol] 650 mg PO Q6 PRN 04/25/17 Haloperidol [Haldol] 1 mg PO HS 04/25/17 Ipratropium/Albuterol Sulfate 3 ml INH Q4H PRN 04/25/17 [Duoneb] [place] Carbonate [Lithobid] 150 mg PO BID 04/25/17 Loratadine [Claritin] 10 mg PO DAILY 04/25/17 Melatonin 10 mg PO HS 04/25/17 Naproxen Sodium [Naproxen Sodium] 220 mg PO BID 04/25/17 Ondansetron HCl Rapdis [Zofran ODT] 4 mg PO Q6 PRN 04/25/17 Oxybutynin Chloride [Ditropan] 5 mg PO DAILY 04/25/17 Ropinirole HCl [Requip] 0.5 mg PO DAILY 04/25/17 Tizanidine HCl [Zanaflex] 4 mg PO BID PRN 04/25/17 - SOCIAL HX Smoking History: non-smoker Alcohol Use: none Drug Use: none - FAMILY HX Family History: No - VITAL SIGNS Vital Signs: Vital Signs Temp Pulse Resp BP Pulse Ox 159/60 08/31/16 12:29 - REVIEWED ASSESSMENTS Nursing Assessment Reviewed: Yes Vitals Reviewed: Yes Progress - Progress Progress: 0830: Pt resting quietly in bed. Dr Jaime notified of labs and urosepsis. Admission will be ordered. DG ED Results Lab/Radiology - Radiology Radiology Impressions: HISTORY: 77-year-old female with cough, vomiting, leukocytosis. COMPARISON: None available TECHNIQUE: Single portable AP view of the chest was performed. FINDINGS: There is mild elevation of the right hemidiaphragm. No pneumothorax, consolidative infiltrates, or pulmonary edema. The heart is not enlarged. IMPRESSION: No acute intrathoracic process identified. Electronically signed on Apr 25, 2017 8:35:51 AM CDT by: Joel Flores General Adult Physical Exam - PHYSICAL EXAM GENERAL APPEARANCE: no distress EENT: eye inspection normal NECK: normal inspection RESPIRATORY: no resp distress, chest non-tender, breath sounds normal CVS: reg rate & rhythm, heart sounds normal, equal pulses, no murmur ABDOMEN: soft, no organomegaly, normal bowel sounds, no distension, non-tender BACK: normal inspection SKIN: warm/dry, normal color EXTREMITIES: non-tender, no evidence of injury, no edema NEURO: other (she is awake, non verbal on commands ) Discharge Clincal Impression: Sepsis due to urinary tract infection Referrals: Cecilio Strauss MD [Primary Care Provider] - 2 Days Condition: Fair Disposition: ADMITTED INPATIENT Decision to Admit: [id number] Date of Decison to Admit: 04/25/17 Decision Time: 08:30
[2017-04-25] MEDS ORDERED: ONDANSETRON HCL/PF 4 MG/ 2ML VIAL ONE (08:01)
[2017-04-25] MEDS ORDERED: 0.9 % SODIUM CHLORIDE 1,000 ML IV ONE ×2 (08:01)
[2017-04-25] MEDS ORDERED: ONDANSETRON HCL/PF 4 MG/ 2ML VIAL IVP ONE (08:02)
[2017-04-25 08:06] LABS: APPEARANCE,URINE Slightly Cloudy (CLEAR); COLOR,URINE Yellow (YELLOW); OCCULT BLOOD,URINE 2+ (NEGATIVE); UROBILINOGEN URINE 0.2 Eu (0.2-1.0)
[2017-04-25 08:09] LABS: MEAN CORPUSCULAR HEMOGLOBIN 31.1 pg (28.0-34.0); MEAN CORPUSCULAR VOLUME 102.3 fl (80.0-100.0)
[2017-04-25 08:21] LABS: SEGMENTED NEUTROPHILS % 95 % (39-79)
[2017-04-25 08:22] LABS: TOXIC GRANULATION PRESENT
[2017-04-25 08:23] LABS: eGFR (African) > 60; eGFR (Non-African) > 60
[2017-04-25] MEDS ORDERED: LEVOFLOXACIN 500MG/D5W 100ML 500 MG in PREMIX BAG 1 BAG IV ONE (08:38)
[2017-04-25] MEDS ORDERED: LEVOFLOXACIN 500MG/D5W 100ML 100 ML IV ONE (08:42)
[2017-04-25 12:48] VITALS: BMI 33.8
--- NOTE | 2017-04-25 13:09 | Diagnostic Imaging Report ---
FARHANA GUTIÉRREZ~ [facility] [id number] [id number] ~ ~ ~ ~ Report Submission Date: Apr 25, 2017 8:35:51 AM CDT Patient ~ Study Name: JOSE BECKMAN ~ Date: Apr 25, 2017 8:20:35 AM CDT ~ Modality Type: DX Gender: F ~ Description: CHEST : 39 ~ Institution: [facility] Physician: FARHANA GUTIÉRREZ ~ ~ ~ HISTORY: ~77-year-old female with cough, vomiting, leukocytosis. COMPARISON: None available TECHNIQUE: Single portable AP view of the chest was performed. FINDINGS: There is mild elevation of the right hemidiaphragm. ~No pneumothorax, consolidative infiltrates, or pulmonary edema. ~The heart is not enlarged. IMPRESSION: No acute intrathoracic process identified. ~ Electronically signed on Apr 25, 2017 8:35:51 AM CDT by: Joel NASSAR
--- NOTE | 2017-04-25 13:36 | History and Physical Report ---
History of Present Illnes - History of Present Illness Reason for Visit: UTI/sepsis History of Present Illness: This is a 77 year old resident of [facility] who presented with decreased LOC and fever today. She also had some diarrhea and decreased LOC. She was noted to have 50-99 WBC/HPF in her urine (culture pending), and her chest XR is clear. Her labs are notable for mild leukocytosis, mactocytosis, mildly elevated lactic acid (2.9) and azotemia. EKG shows PVCs. 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 denies: Cholesterol, Mammogram, Colonoscopy, DEXA Influenza Vaccine: Current for this Influenza Season Pneumonia Vaccine: Yes Resuscitation Status: Resusciation Status Resuscitation Status Do Not Resuscitate - Unable to Obtain History Unable to Obtain: No Review of Systems - Review of Systems Constitutional: Fever, Chills, Weakness. negative: Sweats Eyes: negative: pain ENT: negative: Ear Pain Respiratory: negative: Cough Cardiovascular: negative: Chest Pain Gastrointestinal: Vomiting, Diarrhea. negative: Nausea Genitourinary: Dysuria Musculoskeletal: negative: Neck Pain Skin: negative: Rash, Lesions Neurological: Weakness, Confusion - Medications/Allergies Allergies/Adverse Reactions: Allergies Allergy/AdvReac Type Severity Reaction Status Date / Time hydrocortisone Allergy Verified 04/25/17 08:17 [From Cortizone-10] prochlorperazine edisylate Allergy Verified 04/25/17 08:17 [From Compazine] prochlorperazine maleate Allergy Verified 04/25/17 08:17 [From Compazine] sulfamethoxazole Allergy Verified 04/25/17 08:17 [From Bactrim] trimethoprim [From Bactrim] Allergy Verified 04/25/17 08:17 ciprofloxacin [From Cipro] AdvReac Localized Verified 04/25/17 08:17 Redness ciprofloxacin HCl AdvReac Localized Verified 04/25/17 08:17 [From Cipro] Redness Home Medications: Home Medications Acetaminophen [Tylenol] 650 mg PO Q6 PRN 04/25/17 Haloperidol [Haldol] 1 mg PO HS 04/25/17 Ipratropium/Albuterol Sulfate [Duoneb] 3 ml INH Q4H PRN 04/25/17 [place] Carbonate [Lithobid] 150 mg PO BID 04/25/17 Loratadine [Claritin] 10 mg PO DAILY 04/25/17 Melatonin 10 mg PO HS 04/25/17 Naproxen Sodium [Naproxen Sodium] 220 mg PO BID 04/25/17 Ondansetron HCl Rapdis [Zofran ODT] 4 mg PO Q6 PRN 04/25/17 Oxybutynin Chloride [Ditropan] 5 mg PO DAILY 04/25/17 Ropinirole HCl [Requip] 0.5 mg PO DAILY 04/25/17 Tizanidine HCl [Zanaflex] 4 mg PO BID PRN 04/25/17 Exam - Exam Vital Signs: Vital Signs (72 hours) 04/25/17 04/25/17 09:10 10:42 Temperature 97.4 F L Pulse Rate [ 82 89 Pulse ox] Respiratory 18 18 Rate Blood Pressure 135/61 131/67 [Left Arm] O2 Sat by Pulse 99 99 Oximetry General: Oriented to Person HEENT: Atraumatic, PERRLA, EOMI, Mouth Mucous membr. moist/[place], Edentulous Neck: Stridor. No: Normal Range of Motion Carotids: No Bruit Thyroid: No fullness Lungs: Clear to auscultation, Decreased Air Movement. No: Respiratory Distress , Prolonged Expiration Cardiovascular: Regular rate Murmur: Systolic Murmur Murmur Location: Left Sternal Boarder Heart Murmur Grade: II Abdomen: Normal bowel sounds, Soft, No tenderness Genitourinary: No: Right Inguinal Hernia, Left Inguinal Hernia Male Genitourinary: No: Other Female Genitourinary: No: Prolapse Integumentary: Normal, [place], Other (There is an island dressing over a 1.5cm wound on the left upper chest from a recent skin biopsy at [facility] ( pathology is pending)) Extremities: No clubbing, No cyanosis Neurological: Normal tone, Generalized Weakness Psych/Mental Status: No: Mental status NL, Mood NL, Intact Judgment - Laboratory Results Laboratory Results: CXR is clear Mildly elevated lactic acid is noted WBC is 12K, macrocytosis is noted Prerenal azotemia is appreciated UA shows 50-99 WBC/HPF Assessment/Plan - Assessment/Plan (1) Sepsis due to urinary tract infection Status: Acute Current Visit: Yes Assessment: Currently on Levofloxacin 500 mg IV Plan: Will change to Rocephin at 1 g IV qd due to ciprofloxacin allergy (2) Altered mental status Status: Acute Current Visit: No Qualifiers: Altered mental status type: delirium Qualified Code(s): R41.0 - Disorientation, unspecified Assessment: Improved (3) Dementia Status: Acute Current Visit: No Assessment: Chronic Plan: Continue donepezil and memantine (4) Hypothyroidism Status: Acute Current Visit: No Assessment: Continue current dose of levothyroxine (5) UTI (urinary tract infection) Status: Acute Current Visit: No Assessment: Change to Rocephin due to allergies (6) Bipolar 2 disorder Status: Chronic Current Visit: No Assessment: Continue lamotrigine VTE Assessment - RISK FACTOR SCORE VTE RISK FACTOR SCORES: AGE OVER 60 YEARS, OBESITY - RISK VTE MODERATE RISK: SCORE OF 2 (RISK PROXIMAL DVT 2-4%) PROPHYAXIS NEEDED (Start Lovenox at 30 mg scqd)
[2017-04-25] MEDS ORDERED: IPRATROPIUM/ALBUTEROL SULFATE 3 ML AMPUL.NEB NEB PRN (13:50)
[2017-04-25] MEDS ORDERED: HALOPERIDOL LACTATE 5 MG/ML VIAL IM PRN (13:50)
[2017-04-25] MEDS ORDERED: SUMAtriptan SUCCINATE 25 MG TABLET PO PRN (13:50)
[2017-04-25] MEDS ORDERED: ONDANSETRON HCL 4 MG TAB.RAPDIS PO PRN (13:50)
[2017-04-25] MEDS ORDERED: LORazepam 1 MG TABLET PO PRN (13:50)
[2017-04-25] MEDS ORDERED: traMADol HCL 50 MG TABLET PO PRN (13:50)
[2017-04-25] MEDS ORDERED: cefTRIAXone SODIUM 1 GM in 0.9 % SODIUM CHLORIDE 50 ML IV SCH (15:00)
[2017-04-25] MEDS: DONEPEZIL HCL 5 MG TABLET PO SCH ×2 (18:06→20:25)
[2017-04-25] MEDS: DULoxetine HCL 30 MG CAPSULE.DR PO SCH ×2 (18:07→20:24)
[2017-04-25] MEDS: MELATONIN 3 MG TABLET PO SCH ×2 (18:07→20:25)
[2017-04-25] MEDS: 0.9 % SODIUM CHLORIDE 1,000 ML IV SCH (18:08)
[2017-04-25] MEDS: PANTOPRAZOLE SODIUM 40 MG TABLET PO SCH (18:17)
[2017-04-25] MEDS: NAPROXEN 250 MG TABLET PO SCH ×2 (18:17)
[2017-04-25] MEDS: LEVOTHYROXINE SODIUM 75 MCG TABLET PO SCH (18:18)
[2017-04-25] MEDS: MONTELUKAST SODIUM 10 MG TABLET PO SCH ×2 (18:18→20:24)
[2017-04-25] MEDS: LAMOTRIGINE 100 MG TABLET PO SCH (20:24)
[2017-04-25] MEDS: MEMANTINE HCL 10 MG TABLET PO SCH (20:25)
[2017-04-25] MEDS: LITHIUM CARBONATE 300 MG CAPSULE PO SCH (20:33)
[2017-04-26] MEDS: 0.9 % SODIUM CHLORIDE 1,000 ML IV SCH ×3 (00:40→23:16)
[2017-04-26] MEDS ORDERED: SODIUM CHLORIDE 0.9% IV ONE (02:11)
[2017-04-26] MEDS ORDERED: LABETALOL HCL IV ONE (02:11)
[2017-04-26] MEDS ORDERED: cefTRIAXone SODIUM 1 GM VIAL ONE (05:16)
[2017-04-26] MEDS: PANTOPRAZOLE SODIUM 40 MG TABLET PO SCH ×2 (05:54→06:54)
[2017-04-26] MEDS: LEVOTHYROXINE SODIUM 75 MCG TABLET PO SCH ×2 (05:54→06:54)
[2017-04-26] MEDS: FLUTICASONE PROPIONATE 120 SPRAY/16 GR BOTTLE NS SCH (08:29)
[2017-04-26] MEDS: NAPROXEN 250 MG TABLET PO SCH ×2 (08:30→17:35)
[2017-04-26] MEDS: LISINOPRIL 5 MG TABLET PO SCH (08:34)
[2017-04-26] MEDS: FOLIC ACID 1 MG TABLET PO SCH (08:38)
[2017-04-26] MEDS: rOPINIRole HCL 1 MG TABLET PO SCH (08:38)
[2017-04-26] MEDS: OXYBUTYNIN CHLORIDE 5 MG TABLET PO SCH (08:40)
[2017-04-26] MEDS: LORATADINE 10 MG TABLET PO SCH (08:41)
[2017-04-26] MEDS: MEMANTINE HCL 10 MG TABLET PO SCH ×2 (08:41→23:16)
[2017-04-26] MEDS: cefTRIAXone SODIUM 1 GM in 0.9 % SODIUM CHLORIDE 50 ML IV SCH (08:42)
[2017-04-26] MEDS: LITHIUM CARBONATE 300 MG CAPSULE PO SCH ×2 (08:45→23:16)
[2017-04-26 10:10] LABS: BASOPHILS % 0.2 (0.0-1.5); EOSINOPHILS % 6.3 % (0.0-6.8); MEAN CORPUSCULAR HEMOGLOBIN 31.4 pg (28.0-34.0); MEAN CORPUSCULAR VOLUME 101.7 fl (80.0-100.0); MONOCYTES % 4.7 % (0.0-11.0); NEUTROPHILS # 3.9 # k/uL (1.4-7.7)
[2017-04-26 10:33] LABS: eGFR (African) > 60; eGFR (Non-African) > 60
[2017-04-26] MEDS: ACETAMINOPHEN 325 MG TABLET PO PRN ×2 (18:47→23:14)
[2017-04-26] MEDS: DONEPEZIL HCL 5 MG TABLET PO SCH (23:15)
[2017-04-26] MEDS: MONTELUKAST SODIUM 10 MG TABLET PO SCH (23:15)
[2017-04-26] MEDS: LAMOTRIGINE 100 MG TABLET PO SCH (23:15)
[2017-04-26] MEDS: MELATONIN 3 MG TABLET PO SCH (23:16)
[2017-04-26] MEDS: DULoxetine HCL 30 MG CAPSULE.DR PO SCH (23:16)
[2017-04-27 08:23] LABS: eGFR (African) > 60; eGFR (Non-African) > 60
[2017-04-27] MEDS: 0.9 % SODIUM CHLORIDE 1,000 ML IV SCH (09:23)
[2017-04-27] MEDS: LORATADINE 10 MG TABLET PO SCH (09:24)
[2017-04-27] MEDS: LEVOTHYROXINE SODIUM 75 MCG TABLET PO SCH (09:24)
[2017-04-27] MEDS: NAPROXEN 250 MG TABLET PO SCH (09:24)
[2017-04-27] MEDS: PANTOPRAZOLE SODIUM 40 MG TABLET PO SCH (09:24)
[2017-04-27] MEDS: MEMANTINE HCL 10 MG TABLET PO SCH (09:25)
[2017-04-27] MEDS: FLUTICASONE PROPIONATE 120 SPRAY/16 GR BOTTLE NS SCH (09:25)
[2017-04-27] MEDS: OXYBUTYNIN CHLORIDE 5 MG TABLET PO SCH (09:25)
[2017-04-27] MEDS: FOLIC ACID 1 MG TABLET PO SCH (09:25)
[2017-04-27] MEDS: LISINOPRIL 5 MG TABLET PO SCH (09:25)
[2017-04-27] MEDS: rOPINIRole HCL 1 MG TABLET PO SCH (09:26)
--- NOTE | 2017-04-27 10:51 | Inpatient Progress Note ---
Subjective - Required Recertification Statement I anticipate X number of days because-include discharge plan: 1 day - Review of Systems Events since last encounter: Patient seemed to be doing better today. Patient has a bear appetite has been eating and drinking. Patient denies any complaints at this time. Patient denies industry urinary frequency. WBC count has improved to 5500 with a normal differential. Objective - Exam Vitals and I&O: Vital Signs Temp 97.9 F 04/27/17 10:00 Pulse 63 04/27/17 10:00 Resp 18 04/27/17 10:00 BP 144/57 04/27/17 10:00 Pulse Ox 100 04/27/17 10:00 Intake & Output 04/26/17 04/26/17 04/27/17 11:59 23:59 11:59 Intake Total 520 1600 1240 Output Total 0 0 Balance 520 1600 1240 Intake: IV 759 385 6837 Right Hand 102 218 1069 Oral 120 1000 240 Output: Emesis 0 0 Other: Voiding Method Diaper Incontinent Incontinent # Voids 1 2 2 General: Alert, Oriented to Person, Oriented to Place, Cooperative. No: Oriented to Time Neck: Supple, No JVD Lungs: Clear to auscultation, Normal air movement, Speaks full Sentences. No: Wheezes, Rales, Rhonchi Cardiovascular: Regular rate, Normal S1, Normal S2, No murmurs Abdomen: Normal bowel sounds, Soft, No tenderness. No: Distended Extremities: No clubbing, No cyanosis, No edema Neurological: Normal speech Psych/Mental Status: Mood NL. No: Mental status NL (at baseline) - Results Results: Laboratory Results WBC 5.50 K/ul (4.00-12.00) 04/26/17 09:35 RBC 3.60 M/ul (3.90-5.20) L 04/26/17 09:35 Hgb 11.3 g/dL (12.0-16.0) L 04/26/17 09:35 Hct 36.6 % (34.5-46.5) 04/26/17 09:35 MCV 101.7 fl (80.0-100.0) H 04/26/17 09:35 MCH 31.4 pg (28.0-34.0) 04/26/17 09:35 MCHC 30.8 g/dL (30.0-36.0) 04/26/17 09:35 RDW 12.1 % (11.3-14.3) 04/26/17 09:35 Plt Count 215 K/mm3 (130-400) 04/26/17 09:35 Neut % (Auto) 71.5 % (39.0-79.0) 04/26/17 09:35 Lymph % (Auto) 16.1 % (16.0-50.0) 04/26/17 09:35 [place] % (Auto) 4.7 % (0.0-11.0) 04/26/17 09:35 Eos % (Auto) 6.3 % (0.0-6.8) 04/26/17 09:35 Baso % (Auto) 0.2 (0.0-1.5) 04/26/17 09:35 Neut # (Auto) 3.9 # k/uL (1.4-7.7) 04/26/17 09:35 Lymph # (Auto) 0.9 # k/uL (0.6-4.0) 04/26/17 09:35 [place] # (Auto) 0.3 # k/uL (0.0-0.9) 04/26/17 09:35 Eos # (Auto) 0.4 # k/uL (0.0-0.6) 04/26/17 09:35 Baso # (Auto) 0.0 # k/uL (0.0-0.5) 04/26/17 09:35 Seg Neutrophils % 95 % (39-79) H 04/25/17 08:00 Band Neutrophils % 2 % (0-12) 04/25/17 08:00 Lymphocytes % 3 % (16-50) L 04/25/17 08:00 Reactive Lymphs % 1.3 % (0.0-5.0) 04/26/17 09:35 Reactive Lymphs # 0.1 # k/uL (0.0-0.8) 04/26/17 09:35 Toxic Granulation Present 04/25/17 08:00 Plt Morphology Comment Normal (NORMAL) 04/25/17 08:00 RBC Morph Comment Normal (NORMAL) 04/25/17 08:00 Sodium 148 mmol/L (136-145) H 04/27/17 06:00 Potassium 4.8 mmol/L (3.5-5.1) 04/27/17 06:00 Chloride 116 mmol/L (98-107) H 04/27/17 06:00 Carbon Dioxide 23 mmol/L (22-30) 04/27/17 06:00 BUN 12 mg/dL (7-17) 04/27/17 06:00 Creatinine 1.00 mg/dL (0.52-1.04) 04/27/17 06:00 Estimated Creat Clear 79 04/27/17 06:00 Est GFR ( Amer) > 60 (60-) 04/27/17 06:00 Est GFR (Non-Af Amer) > 60 (60-) 04/27/17 06:00 Glucose 89 mg/dL (74-106) 04/27/17 06:00 Lactate 2.9 U/L (0.7-2.1) H 04/25/17 08:00 Calcium 8.7 mg/dL (8.4-10.2) 04/27/17 06:00 Total Bilirubin 0.5 mg/dL (0.2-1.3) 04/26/17 09:35 AST 18 U/L (15-46) 04/26/17 09:35 ALT 20 U/L (13-69) 04/26/17 09:35 Alkaline Phosphatase 71 U/L (38-126) 04/26/17 09:35 Total Protein 6.2 g/dL (6.3-8.2) L 04/26/17 09:35 Albumin 3.3 g/dL (3.5-5.0) L 04/26/17 09:35 Urine Color Yellow (YELLOW) 04/25/17 08:00 Urine Appearance Slightly cloudy (CLEAR) 04/25/17 08:00 Urine pH 6.0 (5.0 - 8.0) 04/25/17 08:00 Ur Specific [place] 1.020 (1.010-1.030) 04/25/17 08:00 Urine Protein Negative mg/dL (NEGATIVE) 04/25/17 08:00 Urine Ketones Negative mg/dL (NEGATIVE) 04/25/17 08:00 Urine Occult Blood 2+ (NEGATIVE) H 04/25/17 08:00 Urine Nitrite Positive (NEGATIVE) 04/25/17 08:00 Urine Bilirubin Negative (NEGATIVE) 04/25/17 08:00 Urine Urobilinogen 0.2 Eu (0.2-1.0) 04/25/17 08:00 Ur Leukocyte Esterase 2+ (NEGATIVE) H 04/25/17 08:00 Urine RBC 5-10 (0-2 HPF) H 04/25/17 08:00 Urine WBC 50-99 (0-5 HPF) H 04/25/17 08:00 Ur Squamous Epith Cells Moderate (NEG-FEW) H 04/25/17 08:00 Urine Bacteria Many (NEGATIVE) H 04/25/17 08:00 Urine Glucose Negative mg/dL (NEGATIVE) 04/25/17 08:00 Assessment/Plan - Assessment/Plan (1) Sepsis Status: Acute Current Visit: Yes Assessment: improved (2) UTI (urinary tract infection) Status: Acute Current Visit: No Assessment: continue with IV Rocefin, awaiting cultures (3) Bipolar 2 disorder Status: Chronic Current Visit: No Assessment: continue home meds
--- NOTE | 2017-04-27 10:58 | Discharge Summary ---
Discharge Summary - Discharge Sumary History of Present Illness: 77-year-old white female who had a two day history prior to admission of developing fever or chills and increase lethargy. Patient was starting to have some mental status changes and some confusion. Patient was subsequently brought to the emergency room for evaluation. In the ED patient was felt to be sepsis with an elevated lactate due to a urinary tract infection. Patient was subsequently admitted to the hospital for further care and evaluation. Home Medications: Ambulatory Orders Medication Instructions Recorded DULoxetine HCL [Cymbalta] 30 mg PO BID 02/23/15 Fluticasone Propionate 1 spray DESTINY 1T 02/23/15 Sumatriptan Succinate [Imitrex] 50 mg PO Q2H PRN 02/23/15 Acetaminophen [Tylenol] 650 mg PO Q6 PRN 04/25/17 Ipratropium/Albuterol Sulfate 3 ml INH Q4H PRN 04/25/17 [Duoneb] [place] Carbonate [Lithobid] 150 mg PO BID 04/25/17 Melatonin 10 mg PO HS 04/25/17 Ondansetron HCl Rapdis [Zofran ODT] 4 mg PO Q6 PRN 04/25/17 Oxybutynin Chloride [Ditropan] 5 mg PO DAILY 04/25/17 Tizanidine HCl [Zanaflex] 4 mg PO BID PRN 04/25/17 Cefdinir 300 mg PO BID #6 capsule 04/27/17 Naproxen Sodium 220 mg PO BID PRN #0 04/27/17 Tramadol HCl [Ultram] 50 mg PO Q6 PRN #60 tablet 04/27/17 Allergies/Adverse Reactions: Allergies Allergy/AdvReac Type Severity Reaction Status Date / Time hydrocortisone Allergy Verified 04/25/17 08:17 [From Cortizone-10] prochlorperazine edisylate Allergy Verified 04/25/17 08:17 [From Compazine] prochlorperazine maleate Allergy Verified 04/25/17 08:17 [From Compazine] sulfamethoxazole Allergy Verified 04/25/17 08:17 [From Bactrim] trimethoprim [From Bactrim] Allergy Verified 04/25/17 08:17 ciprofloxacin [From Cipro] AdvReac Localized Verified 04/25/17 08:17 Redness ciprofloxacin HCl AdvReac Localized Verified 04/25/17 08:[facility] El[facility] Patient Problems: Current Active Problems Problem Status Onset Sepsis Acute Sepsis due to urinary tract infection Acute UTI (urinary tract infection) Acute Hospital Course: Patient was started on IV Rocephin. Patient was started on IV fluids. Patient vital signs were closely monitored. Patient vital signs did remain stable during the hospitalization. Within 24 hours patient mental status was almost back to normal. Patient was able to feed herself. At the time to discharge patient was stable was felt that she could be further managed at [facility]. Patient was subsequently discharged in stable condition.. - Final Diagnosis (1) Sepsis Problems: stable, improved (2) UTI (urinary tract infection) Problems: Kleb pneumonia, sensitive to Rocephin. Blood cultures negative at this time. (3) Bipolar 2 disorder Problems: stable on home meds
[2017-04-27] MEDS ORDERED: cefTRIAXone SODIUM 1 GM VIAL ONE (12:32)
[2017-04-27] MEDS: cefTRIAXone SODIUM 1 GM in 0.9 % SODIUM CHLORIDE 50 ML IV SCH (12:44)
[2017-04-27] MEDS: LITHIUM CARBONATE 300 MG CAPSULE PO SCH (12:44)
[2017-04-27 16:48] VITALS: BP 154/63
[2017-04-27] MEDS ORDERED: LITHIUM CARBONATE 300 MG TABLET PO SCH (21:00)
== END 2017-04-27 14:30 | DRG 872 ==
LOC: ED 07:33 → SOUTH 09:00
PROVIDERS: ADMIT Family Medicine; ATTEND Family Medicine
DX: A41.89 Other specified sepsis (principal); N39.0 Urinary tract infection, site not specified; N28.9 Disorder of kidney and ureter, unspecified; F31.9 Bipolar disorder, unspecified; I10 Essential (primary) hypertension; E03.9 Hypothyroidism, unspecified; J45.909 Unspecified asthma, uncomplicated
CPT/HCPCS: 36415; 51701; 71045; 80048; 80053; 80178; 81002; 83605; 85025; 87040; 87086; 87186; 93005; A9270; J0696; J1956; J2405; J7030; 96365; 96366; 96375; 99222; 99232; 99238; 99284; S1016

== ENCOUNTER 2017-06-01 08:25 | Inpatient (IN) | payer MEDICARE, OTHER ==
[2017-06-01] MEDS ORDERED: IPRATROPIUM/ALBUTEROL SULFATE 3 ML AMPUL.NEB NEB ONE (08:42)
[2017-06-01 09:50] LABS: BASOPHILS % 0.2 (0.0-1.5); EOSINOPHILS % 4.4 % (0.0-6.8); MEAN CORPUSCULAR HEMOGLOBIN 31.3 pg (28.0-34.0); MEAN CORPUSCULAR VOLUME 105.7 fl (80.0-100.0); MONOCYTES % 2.8 % (0.0-11.0); NEUTROPHILS # 8.2 # k/uL (1.4-7.7)
--- NOTE | 2017-06-01 10:37 | Diagnostic Imaging Report ---
SERGEI BACA [facility] [address] [facility] [address] [address] Report Submission Date: Jun 01, 2017 9:49:48 AM CDT Patient Study Name: JOSE BECKMAN Date: Jun 01, 2017 9:25:00 AM CDT Modality Type: DX Gender: F Description: CHEST : 38 Institution: [facility] Physician: SERGEI BACA Examination: Portable chest History: Evaluate lungs. WHEEZING. PT HAD A MASTECTOMY 4 DAYS AGO (Hx) Comparison exam: 25 April 2017 Findings: Single view of the chest demonstrates a normal cardiac and mediastinal silhouette. Vascular calcifications involving aortic arch. Elevation of the right hemidiaphragm. Generalized parenchymal haziness involving the right hemithorax. No blunting of the costophrenic margins. Surgical drain breast/axilla region. Articular degenerative changes. Impression: Generalized right hemithorax parenchymal haziness. No gross effusion Electronically signed on Jun 01, 2017 9:49:48 AM CDT by: Juan NASSAR
--- NOTE | 2017-06-01 10:49 | ED Physician Documentation ---
General Adult - HISTORIAN Historian: patient - HPI Stated Complaint: Mental status change Chief Complaint: Altered Mental Status Additional Information: 77 yo white female who underwent a left mastectomy for breast cancer on Wednesday ( 4 days ago). Patient has been doing fair since that time. Son reports that she has not been eating or drinking well. He is not sure of urine output. This AM was noted to have decrease SAO2 in the mid 80s. Patient was not responding well and was transferred to the ED for further evaluation and treatment. Patient is lethargic but does not voice of having any pain. Onset: hours (gradull onset over the last 24 hours) Timing: still present Severity: moderate - ROS CONST: no problems. denies: fever, chills CVS/RESP: none. denies: chest pain GI/: none. denies: abdominal pain MS/SKIN/LYMPH: none NEURO/PSYCH: denies: headache, dizziness - PAST HX Past History: other (asthma, Bipolar type 2, chroic anemia, GERD, CKD, s/p CVA) Other History: CVA, other (migraine headache) Surgeries/Procedures: hysterectomy (vaginal) Allergies/Adverse Reactions: Allergies Allergy/AdvReac Type Severity Reaction Status Date / Time hydrocortisone Allergy Verified 06/01/17 08:36 [From Cortizone-10] prochlorperazine edisylate Allergy Verified 06/01/17 08:36 [From Compazine] prochlorperazine maleate Allergy Verified 06/01/17 08:36 [From Compazine] sulfamethoxazole Allergy Verified 06/01/17 08:36 [From Bactrim] trimethoprim [From Bactrim] Allergy Verified 06/01/17 08:36 ciprofloxacin [From Cipro] AdvReac Localized Verified 06/01/17 08:36 Redness ciprofloxacin HCl AdvReac Localized Verified 06/01/17 08:36 [From Cipro] Redness Home Medications: Ambulatory Orders Medication Instructions Recorded DULoxetine HCL [Cymbalta] 30 mg PO BID 02/23/15 Fluticasone Propionate 1 spray DESTINY 1T 02/23/15 Sumatriptan Succinate [Imitrex] 50 mg PO Q2H PRN 02/23/15 Acetaminophen [Tylenol] 650 mg PO Q6 PRN 04/25/17 Ipratropium/Albuterol Sulfate 3 ml INH Q4H PRN 04/25/17 [Duoneb] [place] Carbonate [Lithobid] 150 mg PO BID 04/25/17 Melatonin 10 mg PO HS 04/25/17 Oxybutynin Chloride [Ditropan] 5 mg PO DAILY 04/25/17 Tizanidine HCl [Zanaflex] 4 mg PO BID PRN 04/25/17 Naproxen Sodium 220 mg PO BID PRN #0 04/27/17 Tramadol HCl [Ultram] 50 mg PO Q6 PRN #60 tablet 04/27/17 - SOCIAL HX Smoking History: non-smoker Alcohol Use: none Drug Use: none - FAMILY HX Family History: Yes - VITAL SIGNS Vital Signs: Vital Signs Temp Pulse Resp BP Pulse Ox 98.0 F 77 16 131/47 97 06/01/17 08:25 06/01/17 10:30 06/01/17 08:25 06/01/17 08:25 06/01/17 10:30 - REVIEWED ASSESSMENTS Nursing Assessment Reviewed: Yes Vitals Reviewed: Yes ED Results Lab/Radiology - Lab Results Lab Results: Lab Results 06/01/17 06/01/17 09:05 09:05 WBC 10.80 K/ul K/ul (4.00-12.00) RBC 3.49 M/ul L M/ul (3.90-5.20) Hgb 10.9 g/dL L g/dL (12.0-16.0) Hct 36.9 % % (34.5-46.5) MCV 105.7 fl H fl (80.0-100.0) MCH 31.3 pg pg (28.0-34.0) MCHC 29.6 g/dL L g/dL (30.0-36.0) RDW 12.2 % % (11.3-14.3) Plt Count 295 K/mm3 K/mm3 (130-400) Neut % (Auto) 76.1 % % (39.0-79.0) Lymph % (Auto) 15.4 % L % (16.0-50.0) [place] % (Auto) 2.8 % % (0.0-11.0) Eos % (Auto) 4.4 % % (0.0-6.8) Baso % (Auto) 0.2 (0.0-1.5) Neut # (Auto) 8.2 # k/uL H # k/uL (1.4-7.7) Lymph # (Auto) 1.7 # k/uL # k/uL (0.6-4.0) [place] # (Auto) 0.3 # k/uL # k/uL (0.0-0.9) Eos # (Auto) 0.5 # k/uL # k/uL (0.0-0.6) Baso # (Auto) 0.0 # k/uL # k/uL (0.0-0.5) Reactive Lymphs % 1.2 % % (0.0-5.0) Reactive Lymphs # 0.1 # k/uL # k/uL (0.0-0.8) Sodium 146 mmol/L H mmol/L (136-145) Potassium 6.2 mmol/L H mmol/L (3.5-5.1) Chloride 108 mmol/L H mmol/L (98-107) Carbon Dioxide 26 mmol/L mmol/L (22-30) BUN 37 mg/dL H mg/dL (7-17) Creatinine 5.10 mg/dL H mg/dL (0.52-1.04) Estimated Creat Clear 17 Est GFR ( Amer) 11 L (60 - ) Est GFR (Non-Af Amer) 9 L (60 - ) Glucose 105 mg/dL mg/dL (74-106) Lactate 1.0 U/L U/L (0.7-2.1) Calcium 9.6 mg/dL mg/dL (8.4-10.2) Total Bilirubin 0.7 mg/dL mg/dL (0.2-1.3) AST 22 U/L U/L (15-46) ALT 32 U/L U/L (13-69) Alkaline Phosphatase 110 U/L U/L (38-126) Total Protein 6.3 g/dL g/dL (6.3-8.2) Albumin 3.7 g/dL g/dL (3.5-5.0) - Radiology Radiology Impressions: Examination: Portable chest History: Evaluate lungs. WHEEZING. PT HAD A MASTECTOMY 4 DAYS AGO (Hx) Comparison exam: 25 April 2017 Findings: Single view of the chest demonstrates a normal cardiac and mediastinal silhouette. Vascular calcifications involving aortic arch. Elevation of the right hemidiaphragm. Generalized parenchymal haziness involving the right hemithorax. No blunting of the costophrenic margins. Surgical drain breast/axilla region. Articular degenerative changes. Impression: Generalized right hemithorax parenchymal haziness. No gross effusion - Orders Orders: ED Orders Category Date Time Status Continuous EKG monitoring Q30M Care 06/01/17 08:42 Active Continuous Pulse Oximetry Q30M Care 06/01/17 08:[address] IV Lock 1T Care 06/01/17 08:42 Active CHEST 1VIEW [RAD] Routine Exams 06/01/17 Completed CBC/PLATELET/DIFF Routine Lab 06/01/17 09:05 Completed CMP Routine Lab 06/01/17 09:05 Completed LACTATE Routine Lab 06/01/17 09:05 Completed Ipratropium/Albuterol Sulfate [Duoneb] Med 06/01/17 08:42 Discontinued 3 ml NEB NOW ONE Oxygen Daily Oxygen 06/01/17 08:45 Ordered General Adult Physical Exam - PHYSICAL EXAM GENERAL APPEARANCE: lethargic EENT: eye inspection normal, dry mucous membranes NECK: normal inspection, thyroid normal, supple. No: lymphadenopathy, stiff neck RESPIRATORY: no resp distress, wheezes (L>R). No: rales, rhonchi CVS: reg rate & rhythm, heart sounds normal, equal pulses, no murmur, no gallop ABDOMEN: soft, no organomegaly, normal bowel sounds, no abdominal bruit, no distension, non-tender BACK: normal inspection SKIN: warm/dry, other (well healing surgicla scar to the left chest wall. [place] drain in place) EXTREMITIES: non-tender, normal range of motion, no evidence of injury, no edema NEURO: CN's nml as tested, motor nml, sensation nml, mood/affect nml (at baseline other then lethary). No: cognition normal Discharge Clincal Impression: Dhgws-by-hhwjanl renal failure Qualifiers: Chronic kidney disease stage: stage 4 (severe) Condition: Fair Disposition: ADMITTED INPATIENT Decision to Admit: [id number] Date of Decison to Admit: 06/01/17 Decision Time: 10:36
[2017-06-01] MEDS ORDERED: IPRATROPIUM/ALBUTEROL SULFATE 3 ML AMPUL.NEB NEB PRN (11:06)
[2017-06-01] MEDS ORDERED: traMADol HCL 50 MG TABLET PO PRN (11:13)
[2017-06-01] MEDS ORDERED: LORazepam 1 MG TABLET PO PRN (11:13)
[2017-06-01] MEDS ORDERED: ACETAMINOPHEN 325 MG TABLET PO PRN (11:13)
[2017-06-01] MEDS ORDERED: 0.9 % SODIUM CHLORIDE 1,000 ML IV SCH (11:30)
--- NOTE | 2017-06-01 11:30 | History and Physical Report ---
History of Present Illnes - History of Present Illness Reason for Visit: mental status changes History of Present Illness: 77 yo white female who underwent a left mastectomy for breast cancer on Wednesday ( 4 days ago). Patient has been doing fair since that time. Son reports that she has not been eating or drinking well. He is not sure of urine output. This AM was noted to have decrease SAO2 in the mid 80s. Patient was not responding well and was transferred to the ED for further evaluation and treatment. Patient is lethargic but does not voice of having any pain. - Past Medical History Cardiac: HTN Pulmonary: Asthma [employer]: CVA (with some dysphagia) Gastrointestinal: GERD Heme/Onc: Anemia NOS Psych: Bipolar, Depression Musculoskeletal: Osteoarthritis Renal/: Chronic renal insuff Endocrine: Hypothyroidism - Past Surgical History Past Surgical History: Hysterectomy (vaginal hysterrectomy) - Past Family History Mother Family History: (70s unknown cause) Father Family History: (60s from [place] cause) - Past Social History Smoke: No Occupation: retired, Alcohol: None Drugs: None Lives: Prison Domestic Violence: Negative - Health Maintenance Health Maintenance: Influenza Vaccine, Pneumococcal Vaccine. denies: Cholesterol, Mammogram, Colonoscopy, DEXA Pneumonia Vaccine: Yes Resuscitation Status: Resusciation Status Resuscitation Status Do Not Resuscitate - Unable to Obtain History Unable to Obtain: Yes Review of Systems - Review of Systems Constitutional: negative: Fever, Chills Eyes: negative: pain, vision change ENT: negative: Ear Pain, Ear Discharge, Nose Pain, Nose Discharge, Nose Congestion, Throat Pain Respiratory: Wheezing. negative: Cough, Dry, Shortness of Breath, Hemoptysis, SOB with Excertion, Pleuritic Pain, Sputum Cardiovascular: negative: Chest Pain, Palpitations, Paroxysmal Noc. Dyspnea Gastrointestinal: Constipation (last BM 3 days ago). negative: Nausea, Vomiting , Abdominal Pain, Diarrhea Genitourinary: Incontinence. negative: Dysuria, Frequency Musculoskeletal: Neck Pain, Shoulder Pain Skin: negative: Rash Neurological: Weakness, Numbness. negative: Incoordination, Change in Speech, Confusion, Seizures - Medications/Allergies Allergies/Adverse Reactions: Allergies Allergy/AdvReac Type Severity Reaction Status Date / Time hydrocortisone Allergy Verified 06/01/17 08:36 [From Cortizone-10] prochlorperazine edisylate Allergy Verified 06/01/17 08:36 [From Compazine] prochlorperazine maleate Allergy Verified 06/01/17 08:36 [From Compazine] sulfamethoxazole Allergy Verified 06/01/17 08:36 [From Bactrim] trimethoprim [From Bactrim] Allergy Verified 06/01/17 08:36 ciprofloxacin [From Cipro] AdvReac Localized Verified 06/01/17 08:36 Redness ciprofloxacin HCl AdvReac Localized Verified 06/01/17 08:36 [From Cipro] Redness Current Inpatient Medications: Current Inpatient Medications Acetaminophen (Tylenol) 650 mg PO Q6 PRN PRN Reason: PAIN Albuterol/Ipratropium (Duoneb) 3 ml NEB Q4 PRN PRN Reason: Wheezing Duloxetine HCl (Cymbalta) 30 mg PO BID KATHY Enoxaparin Sodium (Lovenox) 30 mg SQ QD KATHY Stop: 06/14/17 12:01 Folic Acid (Folvite) 1 mg PO DAILY KATHY Sodium Chloride (Normal Saline) 1,000 mls @ 125 mls/hr IV Q10H KATHY Sodium Chloride (Normal Saline) 1,000 mls @ 1,000 mls/hr IV .Q1H KATHY Lamotrigine (Lamictal) 200 mg PO HS KATHY Levothyroxine Sodium (Levothyroxine Sodium) 75 mcg PO D KATHY Lorazepam (Ativan) 0.5 mg PO HS PRN PRN Reason: anxiety, insomnia Memantine (Namenda) 10 mg PO BID KATHY Miscellaneous (Patient Own Med) 150 each PO BID KATHY Montelukast Sodium (Singulair) 10 mg PO HS KATHY Pantoprazole Sodium (Protonix) 40 mg PO 0700 KATHY Tramadol HCl (Ultram) 50 mg PO Q6 PRN PRN Reason: PAIN Exam - Exam General: Oriented to Person, Cooperative, No acute distress. No: Alert ( lethargic), Oriented to Place, Oriented to Time HEENT: Atraumatic, PERRLA, Other (dry mucous membranes) Neck: No: Stridor, Rigidity, Normal Range of Motion (arthritis), Lymphadenopathy Carotids: WNL Thyroid: WNL Lungs: Clear to auscultation, Normal air movement, Speaks full Sentences, Wheezes (left upper lobe). No: Rales, Rhonchi Cardiovascular: Regular rate, Normal S1, Normal S2, No murmurs Abdomen: Normal bowel sounds, Soft, No tenderness, No hepatospenomegaly, No masses Integumentary: Normal, [place], Warm, Dry, Other (healing incisional scr) Extremities: No clubbing, No cyanosis, No edema Neurological: Strength Equal Bilat, Normal tone, Sensation intact, Cranial nerves 3-12 NL, Reflexes 2+ Psych/Mental Status: Mood NL (at baseline), Appropriate Affect. No: Mental status NL (at baseline), Intact Judgment Assessment/Plan - Assessment/Plan (1) Jmosi-ps-scdetva renal failure Status: Acute Current Visit: Yes Qualifiers: Chronic kidney disease stage: stage 4 (severe) Assessment: Believe acute renal failure is due to dehydration. Will start IV fluids and monitor blood tests. (2) Asthma Status: Acute Current Visit: Yes Assessment: mild wheezing , will start HFN treatments and monitor. Possible early pneumonia with her being dry. Will hold off on antibiotic until patient runs fever, WBC count increases or respiratory status gets worse. (3) Dysphagia Status: Chronic Current Visit: Yes Assessment: Has had since CVA. (4) Altered mental status Status: Acute Current Visit: No Qualifiers: Altered mental status type: delirium Qualified Code(s): R41.0 - Disorientation, unspecified Assessment: believed related to dehydration. Will get CT scan and monitor (5) Hypothyroidism Status: Chronic Current Visit: No Assessment: continue home meds (6) Bipolar 2 disorder Status: Chronic Current Visit: No Assessment: continue home meds (7) Breast cancer Status: Acute Current Visit: Yes Assessment: left mastectomy several days ago. VTE Assessment - RISK FACTOR SCORE VTE RISK FACTOR SCORES: AGE OVER 60 YEARS, ANTICIPATED BED CONFINEMENT OR IMMOBILIZATION > 24 HOURS - RISK VTE MODERATE RISK: SCORE OF 2 (RISK PROXIMAL DVT 2-4%) PROPHYAXIS NEEDED
[2017-06-01] MEDS ORDERED: MAGNESIUM HYDROXIDE 400 MG/5 ML 30ML UDC PO ONE (11:37)
[2017-06-01] MEDS: 0.9 % SODIUM CHLORIDE 1,000 ML IV SCH (14:09)
[2017-06-01] MEDS: ENOXAPARIN SODIUM 30 MG/0.3 ML DISP.SYRIN SQ SCH (14:11)
--- NOTE | 2017-06-01 15:13 | Diagnostic Imaging Report ---
SERGEI BACA [facility] [address] [facility] [address] [address] Report Submission Date: Jun 01, 2017 2:19:48 PM CDT Patient Study Name: JOSE BECKMAN Date: Jun 01, 2017 1:36:30 PM CDT Modality Type: CT\SR Gender: F Description: CT BRAIN W/O CONTRAST : 38 Institution: [facility] Physician: SERGEI BACA Examination: CT head without contrast History: MENTAL STATUS CHANGE (Hx) Comparison exam: None available Technique: Noncontrast head CT protocol. Findings: Ventricles and sulci are consistent for patient age. Cerebrocerebellar parenchyma demonstrates periventricular low attenuation consistent with small vessel disease. No evidence for parenchymal hemorrhage. No evidence for mass or mass effect. No midline shift. No extra axial fluid collections. Partial visualization of the paranasal sinuses, mastoid air cells, orbits, skull and scalp without gross irregularity. Impression: Age related changes. No acute parenchymal process. No hemorrhage. Electronically signed on Jun 01, 2017 2:19:48 PM CDT by: Juan NASSAR
[2017-06-01 15:30] VITALS: BMI 35.9
[2017-06-01 16:38] LABS: APPEARANCE,URINE CLOUDY (CLEAR); COLOR,URINE BROWN (YELLOW)
[2017-06-01 16:39] LABS: OCCULT BLOOD,URINE TRACE-LYSED (NEGATIVE); UROBILINOGEN URINE 0.2 Eu (0.2-1.0)
[2017-06-01] MEDS ORDERED: BISACODYL 10 MG SUPP.RECT RC ONE (19:18)
[2017-06-01] MEDS ORDERED: PATIENT OWN MED 1 EACH EACH PO SCH (21:00)
[2017-06-01] MEDS ORDERED: ACETAMINOPHEN 650 MG SUPP.RECT RC ONE (21:13)
[2017-06-01] MEDS: ACETAMINOPHEN 325 MG SUPP.RECT RC PRN (21:35)
[2017-06-01] MEDS: DULoxetine HCL 30 MG CAPSULE.DR PO SCH (22:56)
[2017-06-01] MEDS: MEMANTINE HCL 10 MG TABLET PO SCH (22:56)
[2017-06-01] MEDS: MONTELUKAST SODIUM 10 MG TABLET PO SCH (22:56)
[2017-06-01] MEDS: LAMOTRIGINE 100 MG TABLET PO SCH (22:56)
[2017-06-01] MEDS: Non-Formulary 1 EACH PO SCH (23:02)
[2017-06-02] MEDS: 0.9 % SODIUM CHLORIDE 1,000 ML IV SCH ×3 (00:05→17:27)
[2017-06-02] MEDS: LEVOTHYROXINE SODIUM 75 MCG TABLET PO SCH (06:13)
[2017-06-02] MEDS: PANTOPRAZOLE SODIUM 40 MG TABLET PO SCH (06:13)
[2017-06-02 06:44] LABS: BASOPHILS % 0.2 (0.0-1.5); EOSINOPHILS % 7.9 % (0.0-6.8); MEAN CORPUSCULAR HEMOGLOBIN 31.3 pg (28.0-34.0); MEAN CORPUSCULAR VOLUME 101.3 fl (80.0-100.0); MONOCYTES % 3.2 % (0.0-11.0); NEUTROPHILS # 5.6 # k/uL (1.4-7.7)
--- NOTE | 2017-06-02 08:18 | Inpatient Progress Note ---
Subjective - Required Recertification Statement I anticipate X number of days because-include discharge plan: 2 days - Review of Systems Events since last encounter: Patient is responding some better today. Still is lethargic. Has been taking oral medication some better. Is voiding. Denies any pain. Incision looks clean and dry. Patient has some short episodes of bradycardia into the 30s last night. Patient had a slight low grade fever last night. Has not had any since. Patient denies any SOB at this time. Patient continues ot have some myoclonic jerking. Cardiovascular: Denies: Chest Pain, Palpitations Objective - Exam Vitals and I&O: Vital Signs Temp 97.5 F L 06/02/17 06:00 Pulse 65 06/02/17 06:00 Resp 18 06/02/17 06:00 BP 117/65 06/02/17 06:00 Pulse Ox 100 06/02/17 06:00 Intake & Output 06/01/17 06/01/17 06/02/17 11:59 23:59 11:59 Intake Total 2259 830 Output Total 305 100 30 Balance -305 2159 800 Weight 104 kg Intake: IV 2259 800 Left Forearm 1100 Right Wrist 1159 800 Oral 0 30 Output: Drainage 5 100 30 Left Chest 5 100 30 Urine 300 0 Straight 300 Other: Voiding Method Incontinent Incontinent Incontinent # Voids 1 General: Alert, Oriented to Person, Oriented to Place, Cooperative. No: Oriented to Time Neck: Supple, No JVD Lungs: Clear to auscultation, Normal air movement, Speaks full Sentences. No: Wheezes, Rales, Rhonchi Cardiovascular: Normal S1, Bradycardia. No: Regular rate (sinus arhythmia) Abdomen: Normal bowel sounds, Soft, No tenderness Skin: Normal, [place], Warm, Dry Psych/Mental Status: No: Mental status NL (depressed), Intact Judgment - Results Results: Laboratory Results WBC 8.10 K/ul (4.00-12.00) 06/02/17 06:30 RBC 3.40 M/ul (3.90-5.20) L 06/02/17 06:30 Hgb 10.6 g/dL (12.0-16.0) L 06/02/17 06:30 Hct 34.4 % (34.5-46.5) L 06/02/17 06:30 MCV 101.3 fl (80.0-100.0) H 06/02/17 06:30 MCH 31.3 pg (28.0-34.0) 06/02/17 06:30 MCHC 30.9 g/dL (30.0-36.0) 06/02/17 06:30 RDW 12.4 % (11.3-14.3) 06/02/17 06:30 Plt Count 240 K/mm3 (130-400) 06/02/17 06:30 Neut % (Auto) 68.9 % (39.0-79.0) 06/02/17 06:30 Lymph % (Auto) 18.4 % (16.0-50.0) 06/02/17:30 [place] % (Auto) 3.2 % (0.0-11.0) 06/02/17 06:30 Eos % (Auto) 7.9 % (0.0-6.8) H 06/02/17 06:30 Baso % (Auto) 0.2 (0.0-1.5) 06/02/17 06:30 Neut # (Auto) 5.6 # k/uL (1.4-7.7) 06/02/17 06:30 Lymph # (Auto) 1.5 # k/uL (0.6-4.0) 06/02/17 06:30 [place] # (Auto) 0.3 # k/uL (0.0-0.9) 06/02/17 06:30 Eos # (Auto) 0.6 # k/uL (0.0-0.6) 06/02/17 06:30 Baso # (Auto) 0.0 # k/uL (0.0-0.5) 06/02/17 06:30 Reactive Lymphs % 1.5 % (0.0-5.0) 06/02/17 06:30 Reactive Lymphs # 0.1 # k/uL (0.0-0.8) 06/02/17 06:30 Sodium 148 mmol/L (136-145) H 06/02/17 06:30 Potassium 5.7 mmol/L (3.5-5.1) H 06/02/17 06:30 Chloride 116 mmol/L (98-107) H 04/25/18 06:30 Carbon Dioxide 21 mmol/L (22-30) L 06/02/17 06:30 BUN 34 mg/dL (7-17) H 06/02/17 06:30 Creatinine 3.10 mg/dL (0.52-1.04) H 06/02/17 06:30 Estimated Creat Clear 28 06/02/17 06:30 Est GFR ( Amer) 19 (60-) L 06/02/17 06:30 Est GFR (Non-Af Amer) 15 (60-) L 06/02/17 06:30 Glucose 74 mg/dL (74-106) 06/02/17 06:30 Lactate 1.0 U/L (0.7-2.1) 06/01/17 09:05 Calcium 9.0 mg/dL (8.4-10.2) 06/02/17 06:30 Total Bilirubin 0.6 mg/dL (0.2-1.3) 06/02/17 06:30 AST 25 U/L (15-46) 06/02/17 06:30 ALT 33 U/L (13-69) 06/02/17 06:30 Alkaline Phosphatase 94 U/L (38-126) 06/02/17 06:30 Total Protein 5.7 g/dL (6.3-8.2) L 06/02/17 06:30 Albumin 3.1 g/dL (3.5-5.0) L 06/02/17 06:30 Urine Color Brown (YELLOW) 06/01/17 11:18 Urine Appearance Cloudy (CLEAR) H 06/01/17 11:18 Urine pH 5.0 (5.0 - 8.0) 06/01/17 11:18 Ur Specific [place] >=1.030 (1.010-1.030) H 06/01/17 11:18 Urine Protein 1+ mg/dL (NEGATIVE) H 06/01/17 11:18 Urine Ketones Trace mg/dL (NEGATIVE) H 06/01/17 11:18 Urine Occult Blood Trace-lysed (NEGATIVE) H 06/01/17 11:18 Urine Nitrite Negative (NEGATIVE) 06/01/17 11:18 Urine Bilirubin 2+ (NEGATIVE) H 06/01/17 11:18 Urine Urobilinogen 0.2 Eu (0.2-1.0) 06/01/17 11:18 Ur Leukocyte Esterase Trace (NEGATIVE) H 06/01/17 11:18 Urine Glucose Negative mg/dL (NEGATIVE) 06/01/17 11:18 [place] 1.2 mmol/L (0.6-1.2) 06/01/17 11:12 Assessment/Plan - Assessment/Plan (1) Bradycardia Status: Acute Current Visit: Yes Assessment: I talked with clinical cytogenetics director and he advised since bradycardia occurs during sleep and patient is asymptomatic to monitor it at this time. They would not put a pacemaker in at this time. (2) Svaqu-rh-yranamj renal failure Status: Acute Current Visit: Yes Qualifiers: Chronic kidney disease stage: stage 4 (severe) Assessment: BUN and creatinine have improved to 34 and 3.1 respectively. Will continue with slow rehydration. (3) Asthma Status: Acute Current Visit: Yes Assessment: No wheezing today apears to be improved. (4) Dysphagia Status: Chronic Current Visit: Yes Assessment: continue with thickened liquids. (5) Altered mental status Status: Acute Current Visit: No Qualifiers: Altered mental status type: delirium Qualified Code(s): R41.0 - Disorientation, unspecified Assessment: CT scan normal, improved some today (6) Bipolar 2 disorder Status: Chronic Current Visit: No Assessment: stable on home meds
[2017-06-02] MEDS: ACETAMINOPHEN 325 MG SUPP.RECT RC PRN (09:03)
--- NOTE | 2017-06-02 09:44 | Discharge Summary ---
Discharge Summary - Discharge Sumary History of Present Illness: 77 yo white female who underwent a left mastectomy for breast cancer on Wednesday ( 4 days ago). Patient has been doing fair since that time. Son reports that she has not been eating or drinking well. He is not sure of urine output. This AM was noted to have decrease SAO2 in the mid 80s. Patient was not responding well and was transferred to the ED for further evaluation and treatment. Patient is lethargic but does not voice of having any pain. Condition at Discharge: Stable Home Medications: Ambulatory Orders Medication Instructions Recorded DULoxetine HCL [Cymbalta] 30 mg PO BID 02/23/15 Fluticasone Propionate 1 spray DESTINY 1T 02/23/15 Sumatriptan Succinate [Imitrex] 50 mg PO Q2H PRN 02/23/15 Acetaminophen [Tylenol] 650 mg PO Q6 PRN 04/25/17 Ipratropium/Albuterol Sulfate 3 ml INH Q4H PRN 04/25/17 [Duoneb] [place] Carbonate [Lithobid] 150 mg PO BID 04/25/17 Melatonin 10 mg PO HS 04/25/17 Naproxen Sodium 220 mg PO BID PRN #0 04/27/17 Tramadol HCl [Ultram] 50 mg PO Q6 PRN #60 tablet 04/27/17 Letrozole [Femara] 2.5 mg PO D 06/03/17 Loratadine [Claritin] 10 mg PO D 06/03/17 Magnesium Hydroxide [Milk of 2,400 mg PO D PRN 06/03/17 Magnesia] Ondansetron HCl Rapdis [Zofran ODT] 4 mg PO Q6 PRN 06/03/17 Ropinirole HCl [Requip] 0.5 mg PO D 06/03/17 Tizanidine HCl [Zanaflex] 4 mg PO BID PRN 06/03/17 Consultations this Visit: None Procedures this Visit: None Allergies/Adverse Reactions: Allergies Allergy/AdvReac Type Severity Reaction Status Date / Time hydrocortisone Allergy Verified 06/01/17 08:36 [From Cortizone-10] prochlorperazine edisylate Allergy Verified 06/01/17 08:36 [From Compazine] prochlorperazine maleate Allergy Verified 06/01/17 08:36 [From Compazine] sulfamethoxazole Allergy Verified 06/01/17 08:36 [From Bactrim] trimethoprim [From Bactrim] Allergy Verified 06/01/17 08:36 ciprofloxacin [From Cipro] AdvReac Localized Verified 06/01/17 08:36 Redness ciprofloxacin HCl AdvReac Localized Verified 06/01/17 08:36 [From Cipro] Redness Discharge Summary: Patient was flet to be having acute on chronic renal failure due to dehydration and poor fluid intake. Patient was started on IV fluids of NS. CT scan of the head was done due to increase mental confusion and has normal except for age related changes. During the night after admission patient started to have some bradycardia down into the 30s for short periods of time. Appears to be sinus rhythm. During the morning patient continued to have short episodes of bradycardia into the 30-40s. BP remained stable. Cardiology was consulted and it was felt that since patient is asymptomatic andpulse came up when awake just to monitor patient at this time. Patient's Creatinine and BUN improved to 1.4/ 20 respectively. Ptient did remain mildly hypernatremic during the hospitaliztion. Mental status improved with hydration. Patient mastecomy site remained stable. At the time of discharge it was felt that she was stable enough to be transfered back to [facility] for further care. - Final Diagnosis (1) [id number] renal failure Problems: improved (2) Asthma Problems: stable on home meds (3) Dysphagia Problems: improved (4) Altered mental status Problems: improved back to baseline (5) Bipolar 2 disorder Problems: stable on home meds
[2017-06-02] MEDS: FOLIC ACID 1 MG TABLET PO SCH ×2 (10:03→10:17)
[2017-06-02] MEDS: MEMANTINE HCL 10 MG TABLET PO SCH ×2 (10:03→20:40)
[2017-06-02] MEDS: DULoxetine HCL 30 MG CAPSULE.DR PO SCH ×3 (10:03→20:40)
[2017-06-02] MEDS: Non-Formulary 1 EACH PO SCH ×3 (10:03→20:40)
[2017-06-02] MEDS: PATIENT OWN MED 1 EACH EACH PO SCH (10:16)
[2017-06-02] MEDS: ENOXAPARIN SODIUM 30 MG/0.3 ML DISP.SYRIN SQ SCH (11:39)
[2017-06-02] MEDS: LAMOTRIGINE 100 MG TABLET PO SCH (20:40)
[2017-06-02] MEDS: MONTELUKAST SODIUM 10 MG TABLET PO SCH (20:40)
[2017-06-03] MEDS: 0.9 % SODIUM CHLORIDE 1,000 ML IV SCH (00:51)
[2017-06-03 06:32] LABS: BASOPHILS % 0.2 (0.0-1.5); EOSINOPHILS % 9.1 % (0.0-6.8); MEAN CORPUSCULAR HEMOGLOBIN 31.1 pg (28.0-34.0); NEUTROPHILS # 4.8 # k/uL (1.4-7.7)
[2017-06-03] MEDS: PANTOPRAZOLE SODIUM 40 MG TABLET PO SCH (06:32)
[2017-06-03 06:47] LABS: eGFR (Non-African) 39
[2017-06-03] MEDS: DULoxetine HCL 30 MG CAPSULE.DR PO SCH (08:59)
[2017-06-03] MEDS: LEVOTHYROXINE SODIUM 75 MCG TABLET PO SCH (08:59)
[2017-06-03] MEDS: FOLIC ACID 1 MG TABLET PO SCH (09:00)
[2017-06-03] MEDS: Non-Formulary 1 EACH PO SCH (09:00)
[2017-06-03] MEDS: MEMANTINE HCL 10 MG TABLET PO SCH (09:00)
[2017-06-03] MEDS: PATIENT OWN MED 1 EACH EACH PO SCH (09:01)
[2017-06-03] MEDS: ENOXAPARIN SODIUM 30 MG/0.3 ML DISP.SYRIN SQ SCH (11:30)
--- NOTE | 2017-06-03 11:36 | Diagnostic Imaging Report ---
[facility] [id number] [facility] [address] [address] Report Submission Date: Jun 03, 2017 9:16:15 AM CDT Patient Study Name: JOSE BECKMAN Date: Jun 03, 2017 8:51:29 AM CDT Modality Type: DX Gender: F Description: CHEST : 38 Institution: [facility] Physician: [facility]MED SURG Examination: Portable chest History: Evaluate lungs. PCXR, COUGH, POST LEFT MASTECTOMY X6 DAYS (Hx) Comparison exam: 01 June 2017 Findings: Single view of the chest demonstrates a normal cardiac and mediastinal silhouette. Tortuous aorta. Mild elevation of the right hemidiaphragm. Chronic appearing interstitial changes. No new consolidative process. Lung correa without focal infiltrate. No blunting of the costophrenic margins. Articular degenerative changes. Surgical drain left breast/exam are region. Impression: Chronic interstitial changes. No new consolidation or gross effusion. Electronically signed on Jun 03, 2017 9:16:15 AM CDT by: Juan NASSAR
[2017-06-03 14:14] VITALS: BP 186/79
== END 2017-06-03 13:25 | DRG 683 ==
LOC: ED 08:25 → SOUTH 10:43
PROVIDERS: ADMIT Family Medicine; ATTEND Family Medicine
DX: N17.8 Other acute kidney failure (principal); J45.901 Unspecified asthma with (acute) exacerbation; F31.81 Bipolar II disorder; R41.0 Disorientation, unspecified; E03.9 Hypothyroidism, unspecified; C50.919 Malignant neoplasm of unspecified site of unspecified female breast; R13.10 Dysphagia, unspecified
CPT/HCPCS: 36415; 51701; 70450; 71045; 80053; 80178; 81002; 83605; 84484; 85025; 94640; 96365; 99222; 99232; 99238; J1650; J7030; S1016

== ENCOUNTER 2018-11-08 08:57 | Emergency (ER) | payer MEDICARE, OTHER ==
--- NOTE | 2018-11-08 09:18 | ED Physician Documentation ---
General Adult - HISTORIAN Historian: patient - HPI Stated Complaint: low blood pressure/low HR Chief Complaint: General Adult Additional Information: Patient presents to ED from [place] via EMS. [facility] staff reports low blood pr essure and low HR today, 92/42 HR 58. Patient was found sleeping in the wheel chair and vital were taken at that time. EMS report BP 131/83 HR 66 upon arrival to scene. Patient presents to ED with BP 146/65, HR 75. Patient has no complaints at this time. She states, "I need a nap". Onset: minutes (20) Timing: gone now - ROS CONST: no problems EYES/ENT: none CVS/RESP: none GI/: none MS/SKIN/LYMPH: none NEURO/PSYCH: denies: headache - PAST HX Past History: other (breast cancer) Other History: other (dementia) Surgeries/Procedures: none Allergies/Adverse Reactions: Allergies Allergy/AdvReac Type Severity Reaction Status Date / Time hydrocortisone Allergy Verified 11/08/18 09:05 [From Cortizone-10] prochlorperazine edisylate Allergy Verified 11/08/18 09:05 [From Compazine] prochlorperazine maleate Allergy Verified 11/08/18 09:05 [From Compazine] sulfamethoxazole Allergy Verified 11/08/18 09:05 [From Bactrim] trimethoprim [From Bactrim] Allergy Verified 11/08/18 09:05 ciprofloxacin [From Cipro] AdvReac Localized Verified 11/08/18 09:05 Redness ciprofloxacin HCl AdvReac Localized Verified 11/08/18 09:05 [From Cipro] Redness Home Medications: Ambulatory Orders Medication Instructions Recorded DULoxetine HCL [Cymbalta] 30 mg PO BID 02/23/15 Fluticasone Propionate 1 spray DESTINY 1T 02/23/15 Sumatriptan Succinate [Imitrex] 50 mg PO Q2H PRN 02/23/15 Acetaminophen [Tylenol] 650 mg PO Q6 PRN 04/25/17 Ipratropium/Albuterol Sulfate 3 ml INH Q4H PRN 04/25/17 [Duoneb] [place] Carbonate [Lithobid] 150 mg PO BID 04/25/17 Melatonin 10 mg PO HS 04/25/17 Naproxen Sodium 220 mg PO BID PRN #0 04/27/17 Letrozole [Femara] 2.5 mg PO D 06/03/17 Loratadine [Claritin] 10 mg PO D 06/03/17 Magnesium Hydroxide [Milk of 2,400 mg PO D PRN 06/03/17 Magnesia] Ondansetron HCl Rapdis [Zofran ODT] 4 mg PO Q6 PRN 06/03/17 Ropinirole HCl [Requip] 0.5 mg PO D 06/03/17 Tizanidine HCl [Zanaflex] 4 mg PO BID PRN 06/03/17 - SOCIAL HX Smoking History: non-smoker Alcohol Use: none Drug Use: none - FAMILY HX Family History: No - VITAL SIGNS Vital Signs: Vital Signs Temp Pulse Resp BP Pulse Ox 186/79 06/03/17 10:35 - REVIEWED ASSESSMENTS Nursing Assessment Reviewed: Yes Vitals Reviewed: Yes Progress - Progress Progress: 0942 Patient resting comfortably. HR 64, BP 149/68 General Adult Physical Exam - PHYSICAL EXAM GENERAL APPEARANCE: no distress EENT: KEVIN NECK: supple RESPIRATORY: no resp distress, chest non-tender, breath sounds normal CVS: reg rate & rhythm, heart sounds normal ABDOMEN: soft, normal bowel sounds BACK: normal inspection, no CVA tenderness SKIN: warm/dry, normal color EXTREMITIES: non-tender, no edema NEURO: oriented X3, mood/affect nml, cognition normal Discharge Clincal Impression: Well adult health check Referrals: Cecilio Strauss MD [Primary Care Provider] - 2 Days Additional Instructions: 1. Take all home medications as previously prescribed 2. Drink plenty of fluids to maintain proper hydration 3. Follow up with PCP within 1 week 4. Return to ER for new or worsening symptoms Comments: Patient blood pressure and HR within normal limits her entire stay in ED. Discharge back to care home. Condition: Stable Disposition: [facility]FER HALFWAY Decision to Admit: NO Date of Decison to Admit: 11/08/18 Decision Time: 10:26
[2018-11-08 10:40] VITALS: BP 147/68
== END 2018-11-08 10:38 ==
LOC: ED 08:57
DX: Z00.00 Encounter for general adult medical examination without abnormal findings (principal)
CPT/HCPCS: 99281; 99282

== ENCOUNTER 2019-02-04 11:47 | Emergency (ER) | payer MEDICARE, OTHER ==
--- NOTE | 2019-02-04 12:10 | ED Physician Documentation ---
General Adult - HISTORIAN Historian: patient - HPI Stated Complaint: change in mental status Chief Complaint: General Adult Onset: hours Timing: still present Severity: moderate Further Comments: yes (Pt is a 78 yo female [facility] pt brought to ER for change in mental status. Pt appeared alert and oriented to all but time. Pt does have some dementia. Pt has no complaints. [facility] staff that pt has seemed more tired than usual and does not answer questions readily.) - ROS CONST: no problems EYES/ENT: none CVS/RESP: none GI/: none MS/SKIN/LYMPH: none NEURO/PSYCH: other - PAST HX Past History: other (bipolar d/o, anxiety, dementia, GERD, OA, thyroid dz) Surgeries/Procedures: none Allergies/Adverse Reactions: Allergies Allergy/AdvReac Type Severity Reaction Status Date / Time hydrocortisone Allergy Verified 02/04/19 12:16 [From Cortizone-10] prochlorperazine edisylate Allergy Verified 02/04/19 12:16 [From Compazine] prochlorperazine maleate Allergy Verified 02/04/19 12:16 [From Compazine] sulfamethoxazole Allergy Verified 02/04/19 12:16 [From Bactrim] trimethoprim [From Bactrim] Allergy Verified 02/04/19 12:16 ciprofloxacin [From Cipro] AdvReac Localized Verified 02/04/19 12:16 Redness ciprofloxacin HCl AdvReac Localized Verified 02/04/19 12:16 [From Cipro] Redness Home Medications: Ambulatory Orders Medication Instructions Recorded DULoxetine HCL [Cymbalta] 30 mg PO BID 02/23/15 Fluticasone Propionate 1 spray DESTINY 1T 02/23/15 Sumatriptan Succinate [Imitrex] 50 mg PO Q2H PRN 02/23/15 Acetaminophen [Tylenol] 650 mg PO Q6 PRN 04/25/17 Ipratropium/Albuterol Sulfate 3 ml INH Q4H PRN 04/25/17 [Duoneb] [place] Carbonate [Lithobid] 150 mg PO BID 04/25/17 Melatonin 10 mg PO HS 04/25/17 Naproxen Sodium 220 mg PO BID PRN #0 04/27/17 Letrozole [Femara] 2.5 mg PO D 06/03/17 Loratadine [Claritin] 10 mg PO D 06/03/17 Magnesium Hydroxide [Milk of 2,400 mg PO D PRN 06/03/17 Magnesia] Ondansetron HCl Rapdis [Zofran ODT] 4 mg PO Q6 PRN 06/03/17 Ropinirole HCl [Requip] 0.5 mg PO D 06/03/17 Tizanidine HCl [Zanaflex] 4 mg PO BID PRN 06/03/17 - SOCIAL HX Smoking History: non-smoker Alcohol Use: none Drug Use: none - FAMILY HX Family History: No - VITAL SIGNS Vital Signs: Vital Signs Temp Pulse Resp BP Pulse Ox 147/68 11/08/18 10:38 - REVIEWED ASSESSMENTS Nursing Assessment Reviewed: Yes Vitals Reviewed: Yes Progress - Progress Progress: 1.5 L NS IVF ? UTI, trace leuk, trace blood Rx Macrobid 100 mg. Take one every 12 hours for 7 days. General Adult Physical Exam - PHYSICAL EXAM GENERAL APPEARANCE: no distress EENT: pharynx normal NECK: normal inspection, supple RESPIRATORY: no resp distress, chest non-tender, breath sounds normal CVS: reg rate & rhythm, heart sounds normal ABDOMEN: soft, no organomegaly, normal bowel sounds BACK: normal inspection SKIN: warm/dry, normal color EXTREMITIES: non-tender, no evidence of injury, no edema, other (baseline) NEURO: CN's nml as tested, motor nml, sensation nml, other (baseline ms) Discharge Clincal Impression: mild dehydration, Possible urinary tract infection Referrals: Cecilio Strauss MD [Primary Care Provider] - Condition: Stable Disposition: [facility] Decision to Admit: NO Decision Time: 14:39
[2019-02-04] MEDS ORDERED: 0.9 % SODIUM CHLORIDE 500 ML IV ONE ×2 (12:16→14:12)
--- NOTE | 2019-02-04 13:12 | Diagnostic Imaging Report ---
PATIENT MR#: [id number] PATIENT PATIENT NAME: JOSE BECKMAN DATE OF : 1940 REFERRING PHYSICIAN: Jalil Powers EXAM DATE: 02/04/2019 ACCESSION NUMBER: [id number] EXAM DESCRIPTION: CHEST 1VIEW HISTORY: 78-year-old female with confusion, weakness, malaise COMPARISON: 06/03/2017 TECHNIQUE: Single portable AP view of the chest was performed. FINDINGS: No pneumothorax, consolidative infiltrates, or pulmonary edema. There are tracheal bronchi al calcifications. The heart is not enlarged. IMPRESSION: No acute intrathoracic process. Read by: Dr. Joel Flores Transcribed by: Transcribed Date: Electronically signed by: Dr. Joel Flores Date signed: 02/04/2019 1:11:27 PM
[2019-02-04 13:37] LABS: APPEARANCE,URINE CLEAR (CLEAR); COLOR,URINE YELLOW (YELLOW); OCCULT BLOOD,URINE 2+ (NEGATIVE)
[2019-02-04 13:38] LABS: UROBILINOGEN URINE 0.2 Eu (0.2-1.0)
[2019-02-04 13:40] LABS: BASOPHILS % 0.5 % (0.0-1.5)
[2019-02-04 13:52] LABS: eGFR (Non-African) > 60
[2019-02-04] MEDS ORDERED: NITROFURANTOIN MONO/MACRO 100 MG CAPSULE PO ONE (14:39)
[2019-02-04 14:54] VITALS: BP 152/65
== END 2019-02-04 15:13 ==
LOC: ED 11:47
DX: E86.0 Dehydration (principal)
CPT/HCPCS: 80053; 81002; 82550; 83880; 84484; 85025; 96360; 99284; J7060; S1016